=== PATIENT | male | born 1935 | race Caucasian/White ===

== ENCOUNTER → 2017-12-16 | Day surgery (SDC) | payer MEDICARE ==
[~2017-12-16] MED LIST: ARICEPT5 MG PO; B-12 5,000 MCG1 EACH PO; BUPROPION HCL150 M2 PO; CARVEDILOL3.125 MG PO; DOCUSATE SODIU100 MG PO; FENTANYL CITRATE/PF 100MCG/2 ML INJ ONE; FERROUS SULFAT325 MG PO; FINASTERIDE5 MG PO; GLUCAGON FOR INJ 1 MG VIAL ONE; GLYCOPYRROLATE INJ 1MG/ 5 ML SYR ONE; IPRATROPIU0.2 MG/1 M NEB; LASIX20 MG PO; LIDOCAINE HCL 2% LOCAL INJ 5 ML SDV VIAL INJ ONE; LIPITOR20 MG PO; LISINOPRIL10 MG PO; MELATONIN3 MG PO; MIRALAX17 GM PO; MIRTAZAPINE15 MG PO; NYSTATIN PO; PANTOPRAZOLE SO40 MG PO; PROPOFOL IV EMULSION 10 MG/ML 50 ML VIAL ONE; PROVENTIL HFA6.7 GM INH; SENNOSIDES8.6 MG PO; SPIRIVA18 MCG INH; SUBOXONE 8 MG-1 EAC2 INH; SYMBICORT 80-10.2 GM INH; VITAMIN B-121000 MCG PO; XARELTO10 MG PO
--- NOTE | 2017-12-17 00:55 | Operative Report ---
DATE OF PROCEDURE: December 16, 2017 REFERRING PHYSICIAN: Dr. Bryant Timmons PROCEDURE PERFORMED: Colonoscopy and polypectomy. INDICATIONS FOR COLONOSCOPY: Colorectal cancer screening and occult blood in stool. MEDICATION: Patient was done under MAC. Please see anesthesiologist's note. PROCEDURE: With the patient in the left lateral decubitus position, the flexible fiberoptic Olympus colonoscope was inserted into the rectum with ease and advanced all the way to the proximal ascending colon. The cecum could not be visualized due to the presence of a large amount of retained fecal material in the cecum. The scope was then withdrawn slowly. The prep overall was suboptimal to poor with moderate to large amount of retained stools in the colon. Whatever was visualized of the mucosa of the ascending colon appeared to be within normal limits. One polyp was snared from the transverse colon. One polyp was snared from the descending colon. There was some minimal diverticulosis in the sigmoid colon. The rectum grossly appeared to be within normal limits. The scope was then retroflexed into the distal rectum and small internal hemorrhoids were noted, none of which was actively bleeding. The scope was then straightened out. It was subsequently withdrawn. Patient tolerated the procedure well. IMPRESSION 1. Poor prep. 2. Transverse colon polyps, snared. 3. Descending colon polyps, snared. 4. Internal hemorrhoids, none actively bleeding. PLAN: Follow up histology. Patient will need a repeat colonoscopy after a better prep. Job#: [id number] RI cc:BRYANT TIMMONS MD
== END | disposition home or self-care (01) ==
LOC: ENDO 12:56
PROVIDERS: ATTEND Internal Medicine Gastroenterology
DX: R19.5 Other fecal abnormalities (principal); D12.4 Benign neoplasm of descending colon; D12.3 Benign neoplasm of transverse colon; K64.8 Other hemorrhoids; J44.9 Chronic obstructive pulmonary disease, unspecified; Z99.81 Dependence on supplemental oxygen; E78.5 Hyperlipidemia, unspecified; I13.0 Hypertensive heart and chronic kidney disease with heart failure and stage 1 through stage 4 chronic kidney disease, or unspecified chronic kidney disease; I50.22 Chronic systolic (congestive) heart failure; N18.9 Chronic kidney disease, unspecified; I48.2 Chronic atrial fibrillation; F41.8 Other specified anxiety disorders; N40.0 Benign prostatic hyperplasia without lower urinary tract symptoms; Z95.0 Presence of cardiac pacemaker; Z79.02 Long term (current) use of antithrombotics/antiplatelets; Z88.8 Allergy status to other drugs, medicaments and biological substances
CPT/HCPCS: 45385; J1610; J2001; 45378

== ENCOUNTER 2018-10-27 05:56 | Inpatient (IN) | payer MEDICARE, OTHER ==
[~2018-10-27] VITALS: Ht 172.7 cm; Wt 75.3 kg
[~2018-10-27 05:56] MED LIST changes: -FENTANYL CITRATE/PF 100MCG/2 ML INJ ONE; -GLUCAGON FOR INJ 1 MG VIAL ONE; -GLYCOPYRROLATE INJ 1MG/ 5 ML SYR ONE; -LIDOCAINE HCL 2% LOCAL INJ 5 ML SDV VIAL INJ ONE; -PROPOFOL IV EMULSION 10 MG/ML 50 ML VIAL ONE
--- OUTSIDE RECORDS SUMMARY | 2018-10-27 05:59 | XMS REPORT ---
Author [facility] Address Unknown Phone Unavailable Care Team Providers Care Material Lister Name Role Phone Unavailable Unavailable Payers Payer Name Policy Type Policy Number Effective Date Expiration Date Problems This patient has no known problems. Allergies, Adverse Reactions, Alerts Allergy Name Allergy Type Status Severity Reaction(s) Onset Date Inactive Date Treating Clinician Comments Benzodiazepines DA Active U 2018-07-26 00:00:00 Benzodiazepines DA Active U 2018-06-07 00:00:00 No Known Allergies DA Active U 2016-11-12 00:00:00 Medications This patient has no known medications.
[2018-10-27] MEDS ORDERED: FUROSEMIDE INJ 10 MG/ML 4 ML VIAL IV STA (06:27)
[2018-10-27] MEDS ORDERED: FUROSEMIDE INJ 10 MG/ML 2 ML VIAL ONE (06:34)
[2018-10-27] MEDS ORDERED: CEFEPIME 1GM/NS 0.9% 50 ML 50 ML IV STA ×2 (06:49→11:28)
[2018-10-27] MEDS ORDERED: VANCOMYCIN 1GM/NS 250 ML 250 ML IV STA ×2 (06:49→11:29)
--- NOTE | 2018-10-27 06:55 | NUR ---
Note jennaelizabeth in EDM - 10/27/18 at 1129 by RERE ASSUMED CARE AT THIS TIME. PATIENT AWAKE AND ALERT LAYING IN BED WITH EYES CLOSED,EASILY ARROUSABLE TO VERBAL STIMULI. RESP EVEN AND UNLABORED. SKIN WARM AND DRY. NO SIGNS OF ACUTE DISTRESS NOTED AT THIS TIME. DENIES ANY C/O AT THIS TIME.
[2018-10-27 07:08] LABS: HEMATOCRIT 32.8 % (38.2-49.6); LYMPHOCYTES # (AUTO) 0.5 (1.0-3.2); LYMPHOCYTES % 10.9 % (18.0-39.1); MEAN CORPUSCULAR HEMOGLOBIN 29.4 pg (28-32); MEAN CORPUSCULAR HGB CONC 30.5 g/dL (31-35); MEAN CORPUSCULAR VOLUME 96.5 fL (81-99); MONOCYTES # (AUTO) 0.5 (0.2-0.8); MONOCYTES % 9.5 % (4.4-11.3); NEUTROPHILS # (AUTO) 3.9 (2.1-6.9); NEUTROPHILS % 79.2 % (38.7-80.0); PLATELET COUNT 192 x10e3/uL (140-360); RED CELL DISTRIBUTION WIDTH 14.5 % (11.7-14.4)
--- NOTE | 2018-10-27 07:15 | NUR ---
ASSUMED CARE AT THIS TIME. PATIENT ON BIPAP,TOLERATING WELL. RESP EVEN AND UNLABORED. SKIN WARM AND JDRY. AWAKE AND ALERT SITTING IN BED, DENIES ANY C/O AT THIS TIME. NO SIGNS OF ACUTE DISTRESS NOTED AT THIS TIME.
[2018-10-27 07:34] LABS: ALBUMIN/GLOBULIN RATIO 0.8 (0.8-2.0); ANION GAP 14.8 mmol/L (8-16); CALCIUM 8.7 mg/dL (8.4-10.2); CREATININE, SERUM 2.13 mg/dL (0.72-1.25); MAGNESIUM 2.3 MG/DL (1.3-2.1); POTASSIUM 3.8 mmol/L (3.5-5.1)
--- NOTE | 2018-10-27 07:35 | NUR ---
Note undone in EDM - 10/28/18 at 0716 by RERE 3RD UNIT OF ORDERED BLOOD INITIATED,SEE TRANSFUSION SHEET. PATIENT AWAKE AND ALERT. RESP EVEN AND UNLABORED. SKIN WARM AND DRY. NO SIGNS OF ACUTE DISTRESS NOTED AT THIS TIME. DENIES C/O CHEST PAIN OR SOB AT THIS TIME.
[2018-10-27 07:40] LABS: CREATINE KINASE MB 4.6 ng/mL (0-5.0)
--- NOTE | 2018-10-27 07:50 | NUR ---
Note undone in EDM - 10/28/18 at 0718 by RERE PATIENT AWAKE AND ALERT. RESP EVEN AND UNLABORED. SKIN WARM AND DRY. NO SIGNS OF ACUTE DISTRESS NOTED AT THIS TIME. DENIES C/O CHEST PAIN OR SOB AT THIS TIME. NO S/S OF TRANSFUSION REACTION NOTED AT THIS TIME.
--- NOTE | 2018-10-27 08:04 | Diagnostic Imaging Report ---
EXAMINATION: CHEST SINGLE (PORTABLE) INDICATION: CHF, SOB COMPARISON: None FINDINGS: TUBES and LINES: None. LUNGS: Lungs are moderately inflated. There is moderate perihilar fullness and indistinctness of the pulmonary vasculature. There are patchy opacities at the lung bases bilaterally. PLEURA: No pleural effusion or pneumothorax. HEART AND MEDIASTINUM: The cardiomediastinal silhouette is enlarged. There is eventration of the right hemidiaphragm. Atherosclerotic calcification of the thoracic aorta. BONES AND SOFT TISSUES: No acute osseous abnormality. UPPER ABDOMEN: No free air under the diaphragm. IMPRESSION: Cardiomegaly with moderate pulmonary interstitial edema. Opacities in the lower lungs could represent atelectasis, alveolar edema, or pneumonia in the appropriate clinical setting. Follow-up chest radiograph is suggested to assess for resolution. Signed by: Dr. Chhaya Ham MD on 10/27/2018 8:01 AM
--- NOTE | 2018-10-27 08:30 | NUR ---
PATIENT AWAKE AND ALERT SITTING IN BED, REQUESTING TO TAKE BIPAP MASK OFF FOR A FEW MINUTES, BIPAP MASK TAKEN OFF, TOLERATING WELL. INSTRUCTED TO NOTIFY NURSE FOR ANY C/O SOB OR DIFFICULTY BREATHING,VERBALIZED UNDERSTANDING. NO SIGNS OF ACUTE DISTRESS NOTED AT THIS TIME.
--- NOTE | 2018-10-27 08:55 | NUR ---
PATIENT INCONTINENT, CLEAN SHEETS AND CLEAN BREIF APPLIED. SPO2 IN 70'S, RESP RAPID AN LABORED. BIPAP MASK REAPPLIED, EDUCATED PATIENT ON WEARING BIPAP MASK,VERBALIZED UNDERSTANDING. REPOSITINED IN HIGH FOWLERS. PATIENT RESP STATUS IMPROVING WITH BIPAP AND REST. NO SIGNS OF ACUTE DISTRESS NOTED AT THIS TIME.
--- NOTE | 2018-10-27 09:15 | NUR ---
PATIENT LETHARGIC, DIFFICULT TO ARROUSE TO VERBAL STIMULI,RESP RAPID AND LABORED. SKIN PALE AND DIAPHORETIC. NOTIFIED DR KIM. REPEAT ABG ORDERED AT THIS TIME.
[2018-10-27 09:21] LABS: ABG HCO3 34 mmol/L (23-28); ABG PCO2 62 mmHg (41-51); ABG PH 7.34 (7.31-7.41); ABG PO2 191 mmHg (80-105)
--- NOTE | 2018-10-27 09:21 | NUR ---
RESPIRATORY AT BEDSIDE FOR ABG.
--- NOTE | 2018-10-27 09:35 | NUR ---
NOTIFIED DR KIM RESP STATUS WORSENING AND REPEAT ABG RESULT. PATIENT TO BE PREPPED FOR RSI AT THIS TIME.
[2018-10-27 09:43] LABS: ABG HCO3 33 mmol/L (23-28); ABG PCO2 72 mmHg (41-51); ABG PH 7.26 (7.31-7.41); ABG PO2 172 mmHg (80-105)
--- NOTE | 2018-10-27 10:05 | NUR ---
PATIENT PLACED ON WAFFLE AIR BEDDING,TOLERATED WELL.
--- NOTE | 2018-10-27 10:30 | NUR ---
PATIENT PALE,ORTHOPENIC, LETHARGIC AND DIFICULT TO ARROUSRE TO VERBAL STIMULI,RESP LABORED WITH USE OF ACCESSORY MUSCLES. NOTIFIED DR KIM OF WORSENING RESP STATUS.
--- NOTE | 2018-10-27 10:37 | NUR ---
1037 ETOMIDATE 10MG IV PUSH 1037 SUCCINYCHOLINE 100MG IV PUSH
--- NOTE | 2018-10-27 10:48 | NUR ---
PATIENT OPENING EYES AND BITTING ET TUBE, NOTIFIED DR KIM SEDATION ORDERS NEEDED POST INTUBATION. VERBAL ORDER: VERSED DRIP PER PROTOCOL AND 4MG VERSED IV PUSH ONCE ORDERED AT THIS TIME.
--- NOTE | 2018-10-27 10:52 | NUR ---
CALLED PHARMACY STAT FOR VERSED NEEL
--- NOTE | 2018-10-27 10:57 | NUR ---
XRAY AT BEDSIDE FOR CXR-POST INTUBATION.
[2018-10-27] MEDS ORDERED: MIDAZOLAM HCL 2 MG/2 ML VIAL IV STA (11:00)
[2018-10-27] MEDS: MIDAZOLAM HCL 25 MG in SODIUM CHLORIDE 0.9% 50ML 45 ML IV PRN ×3 (11:07→20:01)
--- NOTE | 2018-10-27 11:36 | Diagnostic Imaging Report ---
EXAMINATION: CHEST SINGLE (PORTABLE) INDICATION: Status post intubation. COMPARISON: Chest radiograph 10/27/2018 at 726AM. FINDINGS: TUBES and LINES: The patient has been intubated in the interval, the ET tube terminates 3.7 cm above the marva. Left-sided pacemaker with single lead overlying the right ventricle. LUNGS: Moderate inflation of the lungs. There are increasing perihilar and interstitial opacities. Increasing hazy opacities at the right lung base. Persistent patchy left basilar opacity. PLEURA: Interval development of a small right pleural effusion. No evidence of pneumothorax. HEART AND MEDIASTINUM: The cardiomediastinal silhouette is mildly enlarged. Atherosclerotic calcification of the aortic arch. BONES AND SOFT TISSUES: No acute osseous abnormality. UPPER ABDOMEN: No free air under the diaphragm. IMPRESSION: Interval intubation. No evidence of pneumothorax. Cardiomegaly with increasing pulmonary edema and new small right-sided pleural effusion. Increased right basilar opacity and persistent left basilar opacity could represent alveolar edema, atelectasis, or pneumonia in the appropriate clinical context. Signed by: Dr. Chhaya Ham MD on 10/27/2018 11:33 AM
--- NOTE | 2018-10-27 12:40 | NUR ---
PATIENT INTUBATED AND SEDATED. NO SIGNS OF ACUTE DISTRESS NOTED AT THIS TIME. PATIENT'S SON AT BEDSIDE. EDUCATED FAMILY ON THE CURRENT PLAN OF CARE,VERBALIZED UNDERSTANDING.
--- NOTE | 2018-10-27 12:58 | NUR ---
PER RADHA, TRANSFER CENTER OF , TRANSFER DENIED DUE TO OVER CAPACITY
[2018-10-27 13:02] LABS: CLARITY,URINE HAZY (CLEAR); COLOR,URINE YELLOW (YELLOW); LEUKOCYTE ESTERASE ,URINE NEGATIVE (NEGATIVE); NITRITE,URINE NEGATIVE (NEGATIVE)
[2018-10-27 13:03] LABS: AMORPHOUS SEDIMENT,URINE FEW (FEW); BACTERIA,URINE MODERATE /HPF; BILIRUBIN,URINE NEGATIVE (NEGATIVE); EPITHELIAL CELLS,URINE MODERATE /LPF; KETONES,URINE NEGATIVE (NEGATIVE); PROTEIN,URINE DIPSTICK TRACE (NEGATIVE); URINE UROBILINOGEN 0.2 mg/dL (0.2 - 1); WBC,URINE (MAN) 0-5 /HPF (0-5)
--- NOTE | 2018-10-27 13:31 | NUR ---
PATIENT INTUBATED AND SEDATED. RESP EVEN AND UNLABORED. SKIN WARM AND DRY. NO SIGNS OF ACUTE DISTRESS NOTED AT THIS TIME.
[2018-10-27] MEDS ORDERED: SODIUM CHLORIDE FLUSH 10 ML SYR INJ PRN (14:15)
--- NOTE | 2018-10-27 14:57 | NUR ---
PATIENT INTUBATED AND SEDATED. RESP EVEN AND UNLABORED. SKIN WARM AND DRY. NO SIGNS OF ACUTE DISTRESS NOTED AT THIS TIME.
[2018-10-27] MEDS ORDERED: LEVAQUIN500 MG PO (15:14)
[2018-10-27] MEDS ORDERED: ASPIR 8181 MG (15:14)
[2018-10-27] MEDS ORDERED: FOLIC ACID1 MG PO (15:14)
[2018-10-27] MEDS ORDERED: POTASSIUM CHLO10 ME1 PO (15:14)
[2018-10-27] MEDS ORDERED: TRAZODONE HCL50 MG PO (15:14)
[2018-10-27] MEDS ORDERED: LACTULOSE10 GM/15 M (15:14)
[2018-10-27] MEDS ORDERED: CLONIDINE HCL0.1 MG PO (15:14)
[2018-10-27] MEDS ORDERED: METOLAZONE2.5 MG (15:14)
[2018-10-27] MEDS ORDERED: PATADAY2.5 ML OU (15:14)
--- NOTE | 2018-10-27 15:14 | NUR ---
EMERGENCY CONTACT DAVID DELVALLE - PATIENT'S SON [phone]
--- NOTE | 2018-10-27 15:56 | NUR ---
XRAY AT BEDSIDE FOR KUB POST OG TUBE PLACEMENT.
[2018-10-27] MEDS ORDERED: TIOTROPIUM 18 MCG INH POWDER INH PRN (16:15)
[2018-10-27] MEDS ORDERED: ALBUTEROL SULFATE HFA 8GM INHALATION AEROSOL INH PRN (16:15)
[2018-10-27] MEDS ORDERED: IPRATROPIUM BROMIDE 0.02% 2.5 ML NEB NEB PRN (16:15)
--- NOTE | 2018-10-27 16:25 | Diagnostic Imaging Report ---
Exam: KUB. Clinical History: NG tube placement Comparison: Chest radiograph 10/27/2018 Findings: Frontal view of the abdomen demonstrates a nonobstructive bowel gas pattern with moderate retained stool. Partially imaged enteric tube with distal tip over the left upper abdomen.Partially imaged cardiac device. Impression: Partially imaged enteric tube with distal tip over the left upper abdomen Signed by: Dr. Jonathan Gutierres M.D. on 10/27/2018 4:22 PM
[2018-10-27] MEDS ORDERED: BUDESONIDE/FORMOTEROL FUMARATE 80/4.5MCG 6.9 GM INH AEROSOL IH SCH (16:30)
[2018-10-27] MEDS ORDERED: FUROSEMIDE INJ 10 MG/ML 4 ML VIAL IV SCH (17:00)
[2018-10-27] MEDS ORDERED: RIVAROXABAN 15 MG TABLET PO SCH (17:00)
[2018-10-27] MEDS: OSELTAMIVIR PHOSPHATE 75 MG CAP PO SCH (17:40)
[2018-10-27] MEDS: CARVEDILOL 3.125 MG TAB PO SCH (17:40)
--- NOTE | 2018-10-27 17:45 | NUR ---
NEPRO TUBE FEED STARTED TO OG TUBE, PER KANGAROO PUMP AT 40ML/HR, REPOSITIONED IN SEMI FOWLERS FOR FEEDING. TOLERATING WELL. NO S/S OF RESP DISTRESS NOTED.
[2018-10-27] MEDS: BUPROPION HCL SR 150 MG TAB PO SCH (17:46)
[2018-10-27 17:51] LABS: CREATINE KINASE MB 3.3 ng/mL (0-5.0)
[2018-10-27] MEDS ORDERED: MIDAZOLAM HCL 2 MG/2 ML VIAL ONE (18:47)
[2018-10-27] MEDS ORDERED: SUCCINYLCHOLINE CHLORIDE 20 MG/ML 10ML VIAL ONE (18:47)
[2018-10-27] MEDS ORDERED: ETOMIDATE 2 MG/ML 10 ML INJ IV ONE (18:47)
--- NOTE | 2018-10-27 18:55 | NUR ---
VERBAL REPORT GIVEN TO MAGEN JOYCE.
--- NOTE | 2018-10-27 19:00 | NUR ---
PT AROUSABLE TO VERBAL AND TACTILE STIMULI THEN APPEARS CALM WHEN NO LONGER STIMULATED. SKIN W/D TOLERATING VENT WELL
[2018-10-27] MEDS: ATORVASTATIN 20 MG TAB PO SCH (20:58)
[2018-10-27] MEDS: DOCUSATE SODIUM 100 MG CAP PO SCH (20:59)
[2018-10-27] MEDS ORDERED: TRAZODONE HCL 50 MG TAB PO SCH (21:00)
[2018-10-27] MEDS ORDERED: MELATONIN 3 MG TAB PO SCH (21:00)
[2018-10-27] MEDS ORDERED: DONEPEZIL HCL 5 MG TAB PO SCH (21:00)
--- NOTE | 2018-10-27 21:00 | NUR ---
CHECKED RESIDUAL FROM NGT, 20CC RETURN, CONTINUED FEEDING AT 40ML/HR
[2018-10-27] MEDS ORDERED: CLONIDINE HCL 0.1 MG TAB PO SCH (22:00)
[2018-10-27] MEDS: CEFEPIME 1GM/NS 0.9% 50 ML 50 ML IV SCH (23:40)
[2018-10-28] VITALS (15 sets, daily range): BP systolic 107–167; BP diastolic 40–82
[2018-10-28] MEDS ORDERED: POTASSIUM CHLORIDE 20MEQ/15ML UDC NG STA (00:11)
[2018-10-28] MEDS ORDERED: FUROSEMIDE INJ 10 MG/ML 4 ML VIAL IV ONE (00:15)
[2018-10-28] MEDS: MIDAZOLAM HCL 25 MG in SODIUM CHLORIDE 0.9% 50ML 45 ML IV PRN ×4 (00:15→13:23)
--- NOTE | 2018-10-28 01:00 | NUR ---
RESIDUAL FROM NGT 200ML, CONT FEEDING.
[2018-10-28 02:07] LABS: CREATINE KINASE MB 2.2 ng/mL (0-5.0)
--- NOTE | 2018-10-28 02:21 | Consultation ---
DATE OF CONSULTATION: 10/27/2018 Cardiac Consultation SOURCE OF INFORMATION: Nursing staff records, reviewing records, reviewing data. The patient is intubated on ventilator, his family is not at bedside. HISTORY: This is an 83-year-old gentleman, who came to the emergency room with severe shortness of breath. Apparently, this started for the last 3 to 4 days. His dyspnea was very severe. He is unable to do anything. He need to be in a sitting position and fighting for his breath. With oxygen and diuretics and other treatment given in the emergency room, he was not doing well at all. He was having wheezing. He does have very abnormal ABGs with pCO2 of 72, pH of 7.26, and pO2 of 172 on 50% FiO2. It was clearly he is in respiratory failure. The patient need to be intubated in the emergency room, placed on ventilator. His chest x-ray showed cardiomegaly, congestion, and possible pneumonia. His influenza A is positive. Urgent cardiac consultation was obtained to evaluate the patient. Cardiac garduno, the patient seems to have a pacemaker. He is in atrial fibrillation. He is on Xarelto for that. He seems to have history of hypertension, dementia, and urinary symptoms. The patient seems to be also bedridden as evidenced by my physical exam of his lower extremities. Unfortunately, no more information can be taken from the patient. REVIEW OF SYSTEMS: Unable to get. PAST MEDICAL HISTORY: 1. Hypertension. 2. COPD. 3. Coronary artery disease. 4. Atrial fibrillation. 5. Hypothyroidism. 6. Congestive heart failure. 7. Chronic renal disease. 8. Hyperlipidemia. 9. Anemia. 10. Prostate problem. 11. Severe constipation. 12. Hyperlipidemia. 13. The patient does have chronic swelling of the lower extremities, on multiple diuretics. 14. Pacemaker implantation. HOME MEDICATIONS: Long list including the followin. Albuterol. 2. Symbicort. 3. Spiriva. 4. Aspirin 81 mg a day. 5. Xarelto 15 mg a day. 6. Lipitor 20 mg a day. 7. Coreg 6.25 mg twice a day. 8. Clonidine 0.1 mg every 8 hours. 9. Lasix 20 mg a day. 10. Zaroxolyn 2.5 mg a day. 11. Lisinopril 10 mg a day. 12. Vitamin B12. 13. Iron sulfate. 14. Folic acid. 15. Colace. 16. Lactulose. 17. Finasteride. 18. Bupropion 150 mg twice a day. 19. Aricept 5 mg a day. 20. Mirtazepine. 21. Trazodone. ALLERGIES: BENZODIAZEPINE. FAMILY HISTORY: Unable to get. PHYSICAL EXAMINATION: GENERAL: Very ill gentleman, on ventilator, sedated with Versed. VITAL SIGNS: Temperature 99 Fahrenheit, respiratory rate is ventilator related, blood pressure 120/70, and heart rate of 50. HEENT: The patient is sedated. Eyes are puffy. The patient is intubated. NECK: Very difficult to assess jugular venous pulsation. CHEST: Bilateral crackles and wheezes. HEART: Irregularly irregular rate. Pacemaker is noted in place. Normal first and second heart sounds. There is ejection systolic murmur in left sternal border. ABDOMEN: Soft and obese. EXTREMITIES: Severe edema of the lower extremities, in both ankles and lower legs. There is redness noted over the left lower extremity. NEUROLOGIC: The patient is intubated on ventilator. LABORATORY DATA: ABG showed pH of 7.26, pCO2 of 72, and pO2 of 172. White blood cell count of 5000, hemoglobin of 10, hematocrit of 36%, and platelet count of 192,000. Sodium of 135, potassium 3.8, BUN of 34, creatinine of 2.13, and glucose of 101. Influenza A is positive. Chest x-ray as described above. Troponin is 0.369. Echo read by Dr. Still showed ejection fraction to be preserved, left ventricular hypertrophy, elevated PA pressure, and mild aortic stenosis. IMPRESSION AND PLAN: 1. Acute respiratory failure. 2. Influenza A. 3. Chronic obstructive pulmonary disease with hypercapnic respiratory failure. 4. History of congestive heart failure. 5. Atrial fibrillation. 6. Pacemaker. 7. Coronary artery disease. 8. Dementia. 9. Chronic urinary symptoms. 10. Chronic constipation. 11. Debility. 12. Marked swelling of the lower extremities, possible Scimitar imposing cellulitis of the left lower extremity. 13. Elevated troponin of 0.369. Cardiac garduno, the patient will be on diuresis. We will hold on his lisinopril for the time being because of elevation of BUN and creatinine. We will continue Coreg. We will continue aspirin. He need to be anticoagulated, probably shifting from Xarelto to Lovenox for the time being. He need to have pulmonary support. He need to have antibiotics coverage. We will observe his volume status. We will check his BMP. We will follow his lab carefully. We need to get more information from his family. We need to get code status. We need to see who is his doctor and get more information. We probably also need to have pacemaker check because his pacemaker response seems to be at 50 only. Case discussed with the ER nurse team. The patient will be going to ICU. The patient will be seen also by Pulmonary Service. We will follow this very sick patient with you and would like thank you for your kind referral. This was lengthy visit with very complex care with multiple medical health problems. MD JEIMY Barrett/CONTRERAS /[id number]
--- NOTE | 2018-10-28 04:06 | NUR ---
CHECKED NGT RESIDUAL, 140ML. CONTINUED TUBE FEEDING. TOLERATING VENT WELL, RESPONDS TO VERBAL STIMULI WITH EYE OPENING, THEN CLOSES EYES AND APPEARS TRANQUIL WHEN NO LONGER STIMULATED.
--- NOTE | 2018-10-28 06:11 | Consultation ---
DATE OF CONSULTATION: 10/27/2018 Pulmonary Medicine Consult REASON FOR REFERRAL: Acute respiratory failure. HISTORY OF PRESENT ILLNESS: Mr. Infante is a pleasant 83-year-old gentleman with acute respiratory failure. The patient was in his routine health recently. However, there was some early onset of malaise. The patient was having progressive shortness of breath. The patient due to increasing symptoms came to the emergency room for aggressive therapy and evaluation. In the emergency room, his influenza assay was negative. Initial chest x-ray showed scant alveolar infiltrates/opacities bilateral. However, he became progressively more short of breath. He eventually needed intubation. Repeat chest x-ray demonstrated good ET tube placement, but moderate bilateral pneumonia and small onset of right-sided pleural effusion. The patient remains with stable blood pressure at this time. I am consulted. Unknown sick contacts for flu. PAST MEDICAL HISTORY: Dyslipidemia, CHF with an ejection fraction of 25%. The patient with hypertension. COPD. Depression. Atrial fibrillation. Pacemaker 2014. Appendectomy in 1963. MEDICATIONS: Medication list reviewed per the chart record. ALLERGIES: NO KNOWN DRUG ALLERGIES. SOCIAL HISTORY: Former smoker, but quit 10 years ago. No alcohol. No drugs. The patient's son was present earlier. REVIEW OF SYSTEMS: Cannot get reliable review of systems, as he is altered. FAMILY HISTORY: Noncontributory to this condition. OBJECTIVE: VITAL SIGNS: Current vitals are more stabilized, currently afebrile now, vitals reviewed per the chart record. GENERAL: In no acute distress, alert, calm, on sedation, on ventilator. HEENT: Normocephalic and atraumatic. NECK: Supple. Throat midline. LUNGS: Bilateral air entry, few rhonchi, rales. CARDIOVASCULAR: S1 and S2. No murmurs, rubs, or gallops. ABDOMEN: Soft and nontender. EXTREMITIES: No clubbing. No cyanosis. There is only 1+ leg edema. INTEGUMENT: No rash. No purpura. LABORATORY DATA: Labs reviewed per the chart record. RADIOGRAPHY: As stated. IMPRESSION AND PLAN: 1. Acute respiratory failure, intubated. 2. Influenza with pneumonia, acquired prior to admission. 3. Possible community-acquired pneumonia, bacterial type, superimposed. 4. Concomitant fluid overload. 5. Congestive heart failure with low ejection fraction. 6. Hypertension. 7. Depression. 8. Atrial fibrillation history. 9. Chronic obstructive pulmonary disease with exacerbation. At this time, he is to continue current treatment. Keep him intubated. He got a dose of diuretic earlier today. We will re-dose him on more diuresis. The patient can have re-evaluation x-ray and consideration for weaning. I gave additional potassium for now. Early tube feeds started and there will be aspiration precautions. We will follow along closely. Give Tamiflu. Give antibiotics. Follow cultures. The patient in critical condition, but we hope there is improvement if he do not have any cardiac events. Thank you very much Dr. Chan for this consult. Please call for questions. MD MARLY Hart/CONTRERAS /[id number]
[2018-10-28 06:17] LABS: BASOPHILS % 0.3 % (0.0-1.0); EOSINOPHILS % 0.3 % (0.0-6.0); HEMATOCRIT 30.3 % (38.2-49.6); HEMOGLOBIN 9.9 g/dL (14.0-18.0); MEAN CORPUSCULAR HEMOGLOBIN 30.4 pg (28-32); MEAN CORPUSCULAR HGB CONC 32.7 g/dL (31-35); MEAN CORPUSCULAR VOLUME 92.9 fL (81-99); MONOCYTES # (AUTO) 0.7 (0.2-0.8); MONOCYTES % 9.4 % (4.4-11.3); NEUTROPHILS # (AUTO) 5.1 (2.1-6.9); NEUTROPHILS % 74.7 % (38.7-80.0); PLATELET COUNT 193 x10e3/uL (140-360); RED BLOOD COUNT 3.26 x10e6/uL (4.3-5.7); RED CELL DISTRIBUTION WIDTH 14.3 % (11.7-14.4)
[2018-10-28 06:39] LABS: CREATINE KINASE MB 1.6 ng/mL (0-5.0)
--- NOTE | 2018-10-28 07:00 | NUR ---
REPORT TO MAGEN CHRISTIAN
--- NOTE | 2018-10-28 07:00 | NUR ---
ASSUMED CARE AT THIS TIME. PATIENT INTUBATED AND SEDATED. RESP EVEN AND UNLABORED. SKIN WARM AND DRY. NO SIGNS OF ACUTE DISTRESS NOTED AT THIS TIME.
--- NOTE | 2018-10-28 07:23 | Diagnostic Imaging Report ---
EXAMINATION: CHEST SINGLE (PORTABLE) COMPARISON: Chest x-ray 10/27/2018 INDICATION: CHF, intubated ^CHF ^[id number] ^0545 ^Y DISCUSSION: Frontal view of the chest obtained at 0543 hours. HEART AND MEDIASTINUM: Stable cardiomegaly and prominence of the pulmonary keya LINES: Endotracheal tube terminates 4 to 5 cm above the marva. Enteric tube extends past the diaphragm. LUNGS: Baseline hyperinflation. Stable pulmonary vascular congestion. Bibasilar airspace opacities are redemonstrated with increasing retrocardiac airspace disease. PLEURA: No large effusions. No pneumothorax. BONES AND SOFT TISSUES: No focal osseous lesion. The soft tissues are normal. IMPRESSION: Support devices as described above. No change in pulmonary vascular congestion. Increasing airspace opacities particularly in the left lung base, either pneumonia or atelectasis. Signed by: Dr. Cherelle Lange MD on 10/28/2018 7:19 AM
[2018-10-28] MEDS ORDERED: ASPIRIN 81 MG CHEW TAB GT SCH (07:30)
--- NOTE | 2018-10-28 07:40 | NUR ---
GASTRIC RESIDUAL 50ML, CONTINUED TUBE FEEDING AT 40ML/HR PER KANGAROO PUMP.
[2018-10-28 07:46] LABS: ALBUMIN 2.6 g/dL (3.5-5.0); ALBUMIN/GLOBULIN RATIO 0.7 (0.8-2.0); ANION GAP 12.9 mmol/L (8-16); CALCIUM 8.3 mg/dL (8.4-10.2); CREATININE, SERUM 1.85 mg/dL (0.72-1.25)
[2018-10-28 07:48] LABS: POTASSIUM 2.9 mmol/L (3.5-5.1)
[2018-10-28 08:07] LABS: THYROID STIMULATING HORMONE 5.085 uIU/mL (0.350-4.940)
[2018-10-28] MEDS ORDERED: LISINOPRIL 10 MG TAB PO SCH (09:00)
[2018-10-28] MEDS ORDERED: RIVAROXABAN 10 MG TABLET PO SCH (09:00)
--- NOTE | 2018-10-28 09:24 | NUR ---
CAITLYN AT BEDSIDE TO PRAY OVER PATIENT. NO SIGNS OF ACUTE DISTRESS NOTED AT THIS TIME. SPOKE WITH CAITLYN REGARDING FAMILYS WISHES AND [employer] PREFRENCES,VERBALIZED UNDERSTANDING.
--- NOTE | 2018-10-28 09:30 | NUR ---
Supervisor Heat Treating called in. Pt's son requested head chopper to pray for his father. No family at bedside at time of visit. Provided prayer from [employer] tradition. Supervisor Heat Treating followed up w/ ED RN. requested follow up visit/prayer by [employer] Pastoral Visitor. Will follow as able. BETHANY Ahumada Spiritual Care Department O: [phone] Pager: [phone] ([phone] number calling from)
--- NOTE | 2018-10-28 10:05 | NUR ---
GASTRIC RESIDUAL 70ML, FEEDING STOPPED TO GIVE MORNING MEDS.
[2018-10-28] MEDS: FERROUS SULFATE 325 MG TAB PO SCH (10:08)
[2018-10-28] MEDS: MIRTAZAPINE 15 MG TAB PO SCH (10:08)
[2018-10-28] MEDS: FUROSEMIDE 20 MG TAB PO SCH (10:08)
[2018-10-28] MEDS: CYANOCOBALAMIN 1,000 MCG TAB PO SCH (10:08)
[2018-10-28] MEDS: CARVEDILOL 3.125 MG TAB PO SCH ×2 (10:08→16:15)
[2018-10-28] MEDS: FOLIC ACID 1 MG TAB PO SCH (10:08)
[2018-10-28] MEDS: FINASTERIDE 5 MG TAB PO SCH (10:08)
[2018-10-28] MEDS: BUPROPION HCL SR 150 MG TAB PO SCH ×2 (10:08→16:14)
[2018-10-28] MEDS: PANTOPRAZOLE SOD 40 MG TABEC PO SCH (10:08)
[2018-10-28] MEDS: OSELTAMIVIR PHOSPHATE 75 MG CAP PO SCH ×2 (10:08→16:14)
--- NOTE | 2018-10-28 10:08 | NUR ---
MORNING MEDS GIVEN PER OG TUBE, FLUSED WITH 30ML STERILE WATER,TOLERATED WELL.
--- NOTE | 2018-10-28 10:09 | NUR ---
TUBE FEEDING RESTARTED PER KANGAROO PUMP AT 40ML/HR, TOLERATING WELL. NO SIGNS OF ACUTE DISTRESS NOTED AT THIS TIME.
[2018-10-28] MEDS: DOCUSATE SODIUM 100 MG CAP PO SCH ×2 (10:11→15:08)
[2018-10-28] MEDS: SENNOSIDES 8.6 MG TAB PO SCH (10:13)
[2018-10-28] MEDS ORDERED: POTASSIUM CHLORIDE 20MEQ/15ML UDC NG ONE ×3 (11:30→21:00)
--- NOTE | 2018-10-28 11:38 | NUR ---
PATIENT TRANSPORTED TO ICU ROOM 195 ON PORTABLE VENT AND COMMUNICATIONS OFFICER WITH RESPIRATORY AND BINDERY ASSISTANT. NO SIGNS OF ACUTE DISTRESS NOTED AT THIS TIME.
[2018-10-28] MEDS: CEFEPIME 1GM/NS 0.9% 50 ML 50 ML IV SCH ×2 (11:59→20:51)
[2018-10-28] MEDS: VANCOMYCIN 1GM/NS 250 ML 250 ML IV SCH (12:24)
--- NOTE | 2018-10-28 13:03 | NUR ---
X2 PREMIXED VERSED DRIPS GIVEN TO SOLA Diego RN FOR USE IN ICU, FROM ER Dmailer REFRIGERATOR LOCK BOX.
--- NOTE | 2018-10-28 13:06 | NUR ---
NOTIFIED PHARMACY X2 PREMIXED VERSED DRIPS GIVEN TO SHAHAB Diego RN FROM ICU FOR PATIENT FROM ED PYXIS.
[2018-10-28] MEDS: APIXAB 2.5 MG TABLET PO SCH (16:14)
--- NOTE | 2018-10-28 16:17 | History and Physical ---
HISTORY OF PRESENT ILLNESS: The patient is on the ventilator right now due to COPD exacerbation, bilateral pneumonia, acute on chronic systolic CHF. PHYSICAL EXAMINATION: VITAL SIGNS: Blood pressure is 136/58, temperature , heart rate 54 per minute, respiratory rate is 18 per minute, and oxygen saturation 100%. HEART: Showed irregularly irregular heart rate. Normal S1, S2 sounds. LUNGS: Clear bilaterally. ABDOMEN: Soft. EXTREMITIES: Show edema of both lower extremities. He also had redness of both lower extremities. LABORATORY DATA: On the BMP; sodium 138, potassium low at 2.9, chloride 91, CO2 of 37, BUN 38, creatinine 1.85, and glucose 95. On the CBC; white blood count 6.88, hemoglobin 9.9, hematocrit 33.3, and platelet count 183,000. AST 34, ALT 21, total bilirubin 0.8, and alkaline phosphatase 60. Echocardiogram showed ejection fraction of 20% to 30%, left ventricular hypertrophy, thickened aortic valve, trace mitral regurgitation, and mild tricuspid regurgitation. On the EKG, he has pacemaker spikes. He has atrial flutter with variable AV block. FINAL IMPRESSION: 1. Acute respiratory failure. 2. Bilateral pneumonia. 3. Chronic obstructive pulmonary disease exacerbation. 4. Cellulitis in both lower extremities. 5. Nonsustained ventricular tachycardia. 6. Acute on chronic renal failure, stage 3. 7. Hypokalemia. 8. Anemia, currently seen. 9. Acute on chronic systolic diastolic congestive heart failure. 10. Chronic atrial fibrillation. PLAN OF TREATMENT: Continue ventilator support replace the potassium. Recheck the potassium initially. Today, continue Atrovent q.6 hours. Continue Versed drip. Continue cefepime 1 g IV twice a day, vancomycin 1 g IV once a day, bupropion 150 mg twice a day, Aricept 10 mg daily, folic acid 1 mg daily, Remeron 7.5 mg daily, Xarelto 15 mg daily. Continue with Tamiflu 75 mg twice a day due to the positive test for influenza. Continue carvedilol 6.25 mg twice a day, Lipitor 20 mg daily, furosemide 20 mg daily, Protonix 40 mg daily, vitamin B12 1000 mcg daily, ferrous sulfate 325 mg daily, lisinopril 10 mg daily, senna one tablet daily, aspirin 81 mg daily, Colace mg three times a day, Proscar 5 mg daily, melatonin 3 mg at bedtime, and trazodone [address] Vivas has been consulted from Pulmonary point of view. Dr. Guzman has been consulted from a Cardiology point of view due to the congestive heart failure and very severe cardiomyopathy. Chest x-ray shows CHF and showed evidence of pneumonia, also most likely aspiration pneumonia. Time spent 60 minutes . MD EPHRAIM Oconnell/CONTRERAS /[id number]
[2018-10-28] MEDS: PROPOFOL IV EMULSION 10MG/ML 100 ML IV SCH (16:18)
[2018-10-28 16:22] LABS: ABG PCO2 63 mmHg (41-51); ABG PH 7.44 (7.31-7.41); ABG PO2 85 mmHg (80-105)
[2018-10-28 16:23] LABS: ABG HCO3 43 mmol/L (23-28)
[2018-10-28] MEDS: HYDRALAZINE HCL 25 MG TAB PO SCH (16:35)
[2018-10-28] MEDS: ACETAZOLAMIDE SODIUM 500 MG/VIAL IV SCH (16:35)
--- NOTE | 2018-10-28 17:18 | Progress Note ---
DATE: 10/28/2018 Pulmonary Critical Care Progress Note I am covering for Dr. Vivas today. SUBJECTIVE: The patient remains on an assist-control mode of ventilation. He is on a low-dose of Versed at this time. He was evaluated by Cardiology and felt to have chronic systolic heart failure with decreased ejection fraction and history of atrial fibrillation. OBJECTIVE: VITAL SIGNS: Blood pressure is 166/82 and the pulse is 62. The respiratory rate is 16. He is on a pressure regulated volume control, sedimentation rate of 14 with a tidal volume of 450. He is orally intubated. HEENT: Shows no facial swelling or erythema. LYMPHATIC: Shows no submandibular, cervical, or supraclavicular adenopathy. CARDIAC: Reveals regular rate and rhythm with a normal S1 and S2. There are no murmurs or rubs. LUNGS: Auscultation of lungs reveals rhonchorous breath sounds bilaterally. There is no wheezing. ABDOMEN: Soft and nontender. There is no rebound or guarding. EXTREMITIES: Shows 2+ leg edema. LABORATORY DATA: Potassium is 2.9, BUN to creatinine ratio is 38 to 1.85. Other electrolytes are within normal limits. White blood cell count is 6.9, hemoglobin is 9.9, and platelet count is 193. Nasal swab for influenza is positive. RADIOGRAPHIC DATA: Chest x-ray shows bilateral pulmonary infiltrates. IMPRESSION: 1. Influenza with associated pneumonia and severe sepsis present on admission. 2. Acute respiratory failure. 3. Chronic systolic congestive heart failure. 4. Paroxysmal atrial fibrillation. 5. Hypertension. 6. Chronic renal failure, stage 3. PLAN: 1. Continue Tamiflu along with cefepime and vancomycin. 2. Await culture results. 3. ABG now and wean as tolerated. 4. DC Versed and begin propofol to help facilitate weaning. 5. DVT prophylaxis with Eliquis. 6. Enteral feedings. 7. Case discussed with nursing staff and Respiratory. 8. Greater than 35 minutes in direct critical care time. Nic Coley MD [facility]/MODL /[id number]
--- NOTE | 2018-10-28 17:36 | NUR ---
CASE MANAGEMENT INITIAL ASSESSMENT [employer] to bedside to discuss plan of care with patient/family. CM/SW role and care transitions discussed. Anticipated discharge plan discussed along with duration of care. CM/SW discussed patients right to make decisions in care. CM/SW work hours given. Patient lives: AT [facility] Admit/Transfer: ER Hospital/ER visits since last admit:0 POA/Emergency contact: NATIVIDAD DELVALLE [phone] Current/Previous Home Health: NONE PCP/Follow-up Care: CUSTODIAL DOCTOR Current/Previous DME: NONE Medications (referring to index hospitalization or the first time you were in the hospital) a. Were changes made in your medications when you were in the hospital on [date of index hospitalization]? Yes No Not sure Explain: Note: If no or not sure, please skip to question d b. Did you understand the changes? Yes No Explain: c. Were you able to obtain your new medications right away? Yes No n/a SNF only Explain: d. Were you able to take your medications like the doctor wanted you to? Yes No Explain: e. Did the hospital give you an accurate, easy to understand list of medications when you left? Yes No n/a SNF only Explain: Scale of 1-10 how comfortable does patient feel with disease management in outpatient setting: Other Services: Employment Status: RETIRED Areas of Concerns: NONE Referral Needs: TO BE DETERMINED Education Needs: NONE IMM/HENSLEY given and signed (if applicable): ON ADMIT Goal for discharge:RETURN TO [facility] CM/SW left business card at the bedside with contact information. Name and number was also written on the patients whiteboard. Patient verbalized understanding of discussion. CM will follow-up with ongoing discharge and transition of care needs.
[2018-10-28 18:25] LABS: MAGNESIUM 1.7 MG/DL (1.3-2.1)
[2018-10-28 18:32] LABS: POTASSIUM 2.7 mmol/L (3.5-5.1)
[2018-10-28] MEDS: ATORVASTATIN 20 MG TAB PO SCH (20:51)
[2018-10-28] MEDS: DOCUSATE SODIUM LIQD 100 MG/10 ML UDC NG SCH (20:51)
[2018-10-28] MEDS ORDERED: SODIUM CHLORIDE 0.9% 250ML 250 ML ONE (21:51)
[2018-10-29] VITALS (24 sets, daily range): BP systolic 96–169; BP diastolic 40–70
[2018-10-29] MEDS: DOCUSATE SODIUM LIQD 100 MG/10 ML UDC NG SCH ×3 (04:59→21:30)
[2018-10-29] MEDS: HYDRALAZINE HCL 25 MG TAB PO SCH ×3 (04:59→17:58)
--- NOTE | 2018-10-29 07:27 | Diagnostic Imaging Report ---
Examination: Single AP view of the chest. COMPARISON: 10/28/2018 INDICATION: Respiratory failure DISCUSSION: Lines/tubes: The endotracheal tube above the marva. Enteric tube with the distal tip not visualized. Lungs: Bilateral lower lung atelectasis and effusions. Central venous congestion. Heart and mediastinum: The heart and the mediastinum are unremarkable. Bones and soft tissues: No acute bony abnormalities. IMPRESSION: Stable central venous congestion with bilateral effusions and lower lung atelectasis. Signed by: Dr. Omkar Jarvis M.D. on 10/29/2018 7:23 AM
[2018-10-29 07:30] LABS: BASOPHILS % 0.3 % (0.0-1.0); EOSINOPHILS # (AUTO) 0.1 (0.0-0.4); EOSINOPHILS % 0.7 % (0.0-6.0); HEMOGLOBIN 10.6 g/dL (14.0-18.0); LYMPHOCYTES # (AUTO) 2.6 (1.0-3.2); LYMPHOCYTES % 36.3 % (18.0-39.1); MEAN CORPUSCULAR HEMOGLOBIN 29.9 pg (28-32); MEAN CORPUSCULAR HGB CONC 31.2 g/dL (31-35); MONOCYTES # (AUTO) 0.7 (0.2-0.8); MONOCYTES % 9.3 % (4.4-11.3); NEUTROPHILS # (AUTO) 3.7 (2.1-6.9); NEUTROPHILS % 53.1 % (38.7-80.0); PLATELET COUNT 171 x10e3/uL (140-360); RED BLOOD COUNT 3.54 x10e6/uL (4.3-5.7); RED CELL DISTRIBUTION WIDTH 14.5 % (11.7-14.4)
[2018-10-29 07:42] LABS: INR 1.84; PROTHROMBIN TIME 21.9 seconds (11.9-14.5)
[2018-10-29 07:47] LABS: ANION GAP 10.8 mmol/L (8-16); CALCIUM 8.8 mg/dL (8.4-10.2); CREATININE, SERUM 1.9 mg/dL (0.72-1.25)
[2018-10-29 07:58] LABS: POTASSIUM 2.8 mmol/L (3.5-5.1)
[2018-10-29] MEDS: IPRATROPIUM BROMIDE 0.02% 2.5 ML NEB NEB PRN ×2 (08:00→20:09)
[2018-10-29] MEDS: FERROUS SULFATE 325 MG TAB PO SCH (08:31)
[2018-10-29] MEDS: APIXAB 2.5 MG TABLET PO SCH ×2 (08:31→16:30)
[2018-10-29] MEDS: FUROSEMIDE 20 MG TAB PO SCH (08:35)
[2018-10-29] MEDS: FINASTERIDE 5 MG TAB PO SCH (08:35)
[2018-10-29] MEDS: FOLIC ACID 1 MG TAB PO SCH (08:35)
[2018-10-29] MEDS: BUPROPION HCL SR 150 MG TAB PO SCH ×2 (08:36→16:30)
[2018-10-29] MEDS: PANTOPRAZOLE SOD 40 MG TABEC PO SCH (08:36)
[2018-10-29] MEDS: SENNOSIDES 8.6 MG TAB PO SCH (08:36)
[2018-10-29] MEDS: OSELTAMIVIR PHOSPHATE 75 MG CAP PO SCH ×2 (08:36→16:30)
[2018-10-29] MEDS: CYANOCOBALAMIN 1,000 MCG TAB PO SCH (08:36)
[2018-10-29] MEDS: MIRTAZAPINE 15 MG TAB PO SCH (08:37)
[2018-10-29] MEDS: CARVEDILOL 3.125 MG TAB PO SCH ×2 (08:44→17:58)
[2018-10-29] MEDS ORDERED: POTASSIUM CHLORIDE 20MEQ/15ML UDC NG NR (09:30)
[2018-10-29] MEDS: POTASSIUM CHLORIDE 20MEQ/15ML UDC NG SCH (09:56)
[2018-10-29] MEDS: CEFEPIME 1GM/NS 0.9% 50 ML 50 ML IV SCH ×2 (09:57→21:30)
[2018-10-29] MEDS: VANCOMYCIN 1GM/NS 250 ML 250 ML IV SCH (10:50)
--- NOTE | 2018-10-29 13:32 | Progress Note ---
DATE: 10/29/2018 Internal Medicine Progress Note SUBJECTIVE: The patient is still on the ventilator. OBJECTIVE: VITAL SIGNS: Blood pressure 97/49, temperature 97.3, heart rate 84 per minute, respiratory rate 15 per minute, and oxygen saturation 100%. HEART: Showed irregularly irregular heart rate. Normal S1, S2 sounds. LUNGS: Show decreased breath sounds bilaterally. ABDOMEN: Soft. EXTREMITIES: Show redness on both lower extremities, significantly decreased edema on the left leg. LABORATORY DATA: BMP; sodium 137, potassium 2.8, chloride 90, CO2 of 39, BUN 41, creatinine 1.90, glucose 119. CBC; white blood count 7.02, hemoglobin is 10.6, hematocrit 34.0, platelet count 171,000. PT 21.9, INR 1.84. AST 34, ALT 21, total bilirubin 0.8, and alkaline phosphatase of 60. FINAL IMPRESSION: 1. Acute respiratory failure secondary to bilateral pneumonia and congestive heart failure. 2. Bilateral pneumonia. 3. Acute on chronic systolic and diastolic congestive heart failure. 4. Cellulitis on both lower extremities. 5. Chronic renal insufficiency, stage 3. 6. Chronic atrial fibrillation. 7. Hypertension with chronic renal insufficiency and hypertensive heart disease. PLAN OF TREATMENT: Continue ventilator support, wean as tolerated. I do not see a lining parts sewer on the case and like to schedule a felt cementer on the case also. We are going to continue Atrovent q.6 hours, cefepime 1 g IV twice a day, vancomycin 1 g IV once a day, propofol for sedation, carvedilol 6.25 mg twice a day, ferrous sulfate 325 mg daily, melatonin 3 mg at bedtime, trazodone 75 mg at bedtime, Colace 100 mg q.8 hours. He is on Tamiflu 75 mg twice a day for a total of seven days because of the flu. He is on respiratory isolation. Also continue vitamin B12 of 1000 mcg with feeding tube daily, Proscar 5 mg daily, Remeron . Continue Eliquis 2.5 mg twice a day. Continue Aricept 10 mg daily, folic acid 1 mg daily, Protonix 40 mg daily, hydralazine 25 mg q.6 hours, potassium chloride 40 mEq as needed for hypokalemia and potassium less than 3.5. Continue bupropion 100 mg twice a day, Lipitor 20 mg daily, furosemide 20 mg daily, acetazolamide 125 mg daily. The patient remain in critical condition. He has episode of nonsustained ventricular tachycardia also, so far he is stable right now. I am going to start to weaning off the ventilator as tolerated. Continue monitoring BUN and creatinine and electrolytes. Time spent around 58 minutes. MD EPHRAIM Oconnell/MODL /[id number]
[2018-10-29 14:00] LABS: ABG HCO3 37 mmol/L (23-28); ABG PCO2 55 mmHg (41-51); ABG PH 7.44 (7.31-7.41); ABG PO2 82 mmHg (80-105)
[2018-10-29] MEDS: PROPOFOL IV EMULSION 10MG/ML 100 ML IV SCH (14:44)
--- NOTE | 2018-10-29 14:48 | Progress Note ---
DATE: 10/29/2018 Pulmonary Critical Care Progress Note SUBJECTIVE: The patient has remained on the ventilator overnight. His sedation was held this morning, but he is still a little somnolent. PHYSICAL EXAMINATION: VITAL SIGNS: The blood pressure is 165/66 and his respiratory rate is 19. Saturation is 100%. He is on a pressure regulated volume control at a rate of 14. HEENT: Shows no facial swelling or erythema. The oropharynx is normal. There is no oral endotracheal tube. CARDIAC: Reveals regular rate and rhythm with normal S1, S2. There are no murmurs or rubs. LUNGS: Auscultation of lungs reveals clear breath sounds bilaterally. There is no wheezing. ABDOMEN: Soft, nontender. There is no rebound or guarding. EXTREMITIES: Show no leg edema or calf tenderness. There is no cyanosis or clubbing. SKIN: Shows no rashes. NEUROLOGICAL: Shows no focal abnormalities. LABORATORY DATA: The BUN to creatinine ratio is 34:2.13. The potassium is 2.9. The liver tests are normal. The hemoglobin is 10.6 and the platelet count is 171. IMPRESSION: 1. Pneumonia with severe sepsis, present on admission. 2. Influenza. 3. Acute respiratory failure. 4. Chronic congestive heart failure. 5. Paroxysmal atrial fibrillation. 6. Hypertension. 7. Chronic renal failure. PLAN: 1. Continue to observe patient off sedation. Once he is more awake, we will begin a spontaneous breathing trial. 2. Enteral feedings. 3. Continue antibiotics. 4. Deep vein thrombosis prophylaxis. 5. Continue treatment for atrial fibrillation. MD IVANNA Hanson/CONTRERAS /[id number]
--- NOTE | 2018-10-29 15:50 | NUR ---
Visit made by the Spiritual Care Department Rastafarian Pastoral Visitor, Srinath Hurtado. Pt sleeping soundly and no family at bedside. PV provided prayer. BETHANY MOSS Lunchroom Supervisor Spiritual Care Department O: [phone] Pager: [phone] ([phone] number calling from)
[2018-10-29] MEDS: ACETAZOLAMIDE SODIUM 500 MG/VIAL IV SCH (16:29)
[2018-10-29] MEDS: POTASSIUM CHLORIDE 20MEQ/15ML UDC NG PRN (17:57)
--- NOTE | 2018-10-29 18:20 | NUR ---
Sedation and tube feed turned off at 0800 for ventilator weaning done this AM. Patient tolerated well. ABG drawn but patient is not completely waking up yet. He nods yes and no and moves lower extremities to command. Patient grimaces to sternal rub and any repositioning. Will wait for patient to be able to lift and hold head up and open his eyes before extubation. possible tomorrow. restarted tube feed at 1800. patient repositioned throughout the day q2 and prn. vital signs stable and urine output adequate,
[2018-10-29] MEDS: ATORVASTATIN 20 MG TAB PO SCH (21:29)
[2018-10-30] VITALS (27 sets, daily range): BP systolic 120–179; BP diastolic 48–128
[2018-10-30] MEDS: IPRATROPIUM BROMIDE 0.02% 2.5 ML NEB NEB PRN ×2 (00:55→11:37)
--- NOTE | 2018-10-30 04:58 | NUR ---
PATIENT AWAKE AND RESTLESS, ATTEMPTS TO REDIRECT UNSUCCESSFUL. ATTEMPTING TO GRAB ETT, BILATERAL WRIST RESTRAINTS APPLIED
[2018-10-30] MEDS: DOCUSATE SODIUM LIQD 100 MG/10 ML UDC NG SCH ×3 (06:20→22:02)
--- NOTE | 2018-10-30 07:00 | NUR ---
No family present. Emergency Management Specialist left a card describing availability of senior production manager and instructions on how to contact a senior production manager. BETHANY MOSS Emergency Management Specialist Spiritual Care Department O: [phone] Pager: [phone] ([phone] number calling from)
[2018-10-30] MEDS: FERROUS SULFATE 325 MG TAB PO SCH (08:18)
[2018-10-30] MEDS: FINASTERIDE 5 MG TAB PO SCH (08:18)
[2018-10-30] MEDS: POTASSIUM CHLORIDE 20MEQ/15ML UDC NG SCH (08:18)
[2018-10-30] MEDS: HYDRALAZINE HCL 25 MG TAB PO SCH ×2 (08:18→21:26)
[2018-10-30] MEDS: PANTOPRAZOLE SOD 40 MG TABEC PO SCH (08:18)
[2018-10-30] MEDS: FUROSEMIDE 20 MG TAB PO SCH (08:18)
[2018-10-30] MEDS: SENNOSIDES 8.6 MG TAB PO SCH (08:18)
[2018-10-30] MEDS: BUPROPION HCL SR 150 MG TAB PO SCH ×2 (08:18→21:26)
[2018-10-30] MEDS: CYANOCOBALAMIN 1,000 MCG TAB PO SCH (08:18)
[2018-10-30] MEDS: FOLIC ACID 1 MG TAB PO SCH (08:18)
[2018-10-30] MEDS: OSELTAMIVIR PHOSPHATE 75 MG CAP PO SCH ×2 (08:18→21:26)
[2018-10-30] MEDS: APIXAB 2.5 MG TABLET PO SCH ×2 (08:18→21:26)
[2018-10-30] MEDS: CARVEDILOL 3.125 MG TAB PO SCH ×2 (08:18→21:26)
[2018-10-30] MEDS: CEFEPIME 1GM/NS 0.9% 50 ML 50 ML IV SCH ×2 (09:14→22:02)
[2018-10-30] MEDS: VANCOMYCIN 1GM/NS 250 ML 250 ML IV SCH (11:00)
--- NOTE | 2018-10-30 11:00 | NUR ---
Dr Vivas to bedside; 1125 extubated to 2L NC.
[2018-10-30] MEDS ORDERED: FUROSEMIDE INJ 10 MG/ML 4 ML VIAL IV ONE (11:15)
[2018-10-30] MEDS ORDERED: POTASSIUM CHLORIDE 20MEQ/100ML 100 ML IV ONE (11:15)
--- NOTE | 2018-10-30 11:31 | Progress Note ---
DATE: 10/30/2018 Internal Medicine Progress Note SUBJECTIVE: The patient is on the weaning process from the ventilator right now, more alert. PHYSICAL EXAMINATION: VITAL SIGNS: Blood pressure 97/49, temperature 97.3, heart rate 84 per minute, respiratory rate 16 per minute, oxygen saturation 100%. HEART: Showed irregularly irregular heart rate. Normal S1, S2 sound. LUNGS: Clear bilaterally. ABDOMEN: Soft. EXTREMITIES: Show decreased swelling and redness of both lower extremities. LABORATORY DATA: BMP; sodium 137, potassium 2.8, chloride 90, CO2 of 39, BUN 41, creatinine 1.90, glucose 118. CBC; white blood count 7.02, hemoglobin 10.6, hematocrit 34.0, platelet count 171,000. The last BMP shows sodium 137, potassium 3.3, chloride 90, CO2 of 39, BUN 41, creatinine 1.90, glucose 119. PT 21.9, INR 1.84, AST 34, ALT 21, total bilirubin 0.8, alkaline phosphatase 60. FINAL IMPRESSION: 1. Acute respiratory failure secondary to combination of pneumonia and congestive heart failure. 2. Bilateral pneumonia. 3. Ipbxh-fn-rttzoun systolic and diastolic congestive heart failure. 4. Cellulitis of both lower extremities, which is slowly resolving. 5. Chronic renal insufficiency, stage III. 6. Chronic atrial fibrillation. 7. Flu. 8. Hypertension with chronic renal failure and hypertensive heart disease with congestive heart failure. PLAN: We are going to repeat CBC and BMP. Wean off the ventilator as tolerated. Time spent around 55 minutes. MD EPHRAIM Oconnell/CONTRERAS /[id number]
[2018-10-30] MEDS: PROPOFOL IV EMULSION 10MG/ML 100 ML IV SCH (13:17)
--- NOTE | 2018-10-30 13:32 | Progress Note ---
DATE: 10/30/2018 Pulmonary Medicine Progress Note SUBJECTIVE: Mr. Infante was seen and examined at bedside. He continues on ventilator at this time. He was finally able to awaken with attempts to minimize sedation. The patient with large endotracheal secretions. However, his RSBI is in the 80s range. We will try that is still pending. REVIEW OF SYSTEMS: No headaches, no bleeding. OBJECTIVE: VITAL SIGNS: Afebrile, vital signs noted per the chart record. GENERAL: In no acute distress, although he is anxious on ventilator. Awake. HEENT: Normocephalic, atraumatic. NECK: Supple. Throat midline. LUNGS: Bilateral air entry, few rhonchi. CARDIOVASCULAR: S1 and S2. No murmurs, rubs, or gallops. ABDOMEN: Soft, nontender. EXTREMITIES: No clubbing. No cyanosis. There is no edema. INTEGUMENT: No rash or purpura. LABORATORY DATA: 3.3 potassium, 41 BUN, 1.9 creatinine, 7 white count, 34 hematocrit, 171 platelets. 1.84 INR. IMPRESSION AND PLAN: 1. Acute respiratory failure, intubated. 2. Flu, pneumonia. 3. Chronic congestive heart failure, with decompensation. 4. Acute on chronic kidney failure. 5. Influenza, acute. 6. Treat for community-acquired pneumonia. Continue weaning at this time. evaluate him to see if we can extubate him, but we will have to account for the high amount of airway secretions. We will check some neuromuscular parameters. Continue the Tamiflu. Continue antibiotics. The patient will have further blood thinners at this time. Comfort medicines if needed. Greater than 30 minutes in direct care today. Multiple evaluation. MD MARLY Hart/CONTRERAS /[id number]
[2018-10-30] MEDS: ACETAZOLAMIDE SODIUM 500 MG/VIAL IV SCH (17:11)
[2018-10-30 17:53] LABS: ABG PH 7.39 (7.31-7.41)
[2018-10-30 17:55] LABS: ABG PCO2 70 mmHg (41-51)
[2018-10-30 17:56] LABS: ABG HCO3 42 mmol/L (23-28); ABG PO2 46 mmHg (80-105)
--- NOTE | 2018-10-30 18:54 | Diagnostic Imaging Report ---
Examination: Single AP view of the chest. COMPARISON: Portable chest 10/29/2018 INDICATION: Desaturation IMPRESSION: 1. Lines and Tubes: Interval placement of enteric tube which has its tip coiled in the right lower lung, and is likely located in the right bronchus. Left cardiac device is stable. 2. Bibasilar atelectasis. No definite consolidation. 3. Enlarged cardiac silhouette. Mild central venous congestion. 4. No acute bony abnormalities. 5. Findings discussed with Josefina, the patient's in ICU nurse October 30, 2018 at 1855 hours Signed by: Dr. Lanre Ohara M.D. on 10/30/2018 6:51 PM
--- NOTE | 2018-10-30 19:16 | Diagnostic Imaging Report ---
Exam: Limited abdominal film Clinical History: NG tube placement Comparison: None. DISCUSSION: See impression. IMPRESSION: 1. No NG tube is visualized. 2. Dilated large bowel, with maximal measurement of 7 cm. 3. Left retrocardiac opacity and likely left pleural effusion. The staff physician below has personally reviewed this exam on the date of dictation. Signed by: Dr. Lanre Ohara M.D. on 10/30/2018 7:12 PM
--- NOTE | 2018-10-30 19:17 | NUR ---
Nutrition Intervention Note RD Recommendation(s) for Physician: -Rec continuous TF of Vital AF 1.2 @55mL/hr, providing 1584kcal, 99g protein, and 1070mL water. -Rec 30mL water flushes q 4hr; additional per MD discretion -Check daily labs, weight, GI tolerance -Consult PATIENT ADMITTING REPRESENTATIVE for swallow eval if extubated Plan of Care: RD following, monitoring for tolerance and adequacy, TF Nutrition reason for involvement: Diagnosis, New TF RD Assessment 10/30 - Chart reviewed. 83yo M, who was admitted for acute respiratory failure. Pt was discussed during AM rounds. Pt was intubated and on vent. TF was held for possible extubation today. Off sedation. No pressor meds. Pending Abd X-ray. Unable to obtain hx from pt; no family on bedside. Will continue to monitor and follow. Principal Problems/Diagnoses: 1. Acute respiratory failure, intubated. 2. Flu, pneumonia. 3. Chronic congestive heart failure, with decompensation. 4. Acute on chronic kidney failure. 5. Influenza, acute. PMH: HTN, COPD, CAD, Afib, hypothyroidism, CHF, chronic renal disease, HLD, anemia GI: abdomen soft, round, flatus present, NGT present Skin: no pressure wound noted, per RN Labs: (10/30) No lab today Meds: colace, abx, KCl, eliquis, protonix, lasix, folic acid, feosol, vit B12 Ht: 68in Wt: 184lb BMI: 28kg/m2 IBW: 154lb Malnutrition Evaluation (10/30) The patient does not meet criteria for a specified degree of malnutrition at this time. Will re-evaluate at follow-up as appropriate. Nutrition Prescription (Diet Order): Nepro @ 40mL/hr Estimated Nutritional Needs: Calories: 1826 2075kcal (22-25kcal/kg/d) Weight used: current BW Protein:83 100g (1-1.2g/kg/d) Weight used: current BW Diet Adequacy: N/A Diet Education Needs Assessment: Diet education indicated, but patient not appropriate for education at this time. Nutrition Care Level: mod Nutrition Diagnosis: Inadequate oral intake related to current medical status as evidenced by pt requiring EN as main source of nutrition. Goal: Patient will meet 75-100% of estimated needs by follow up Progress: N/A Interventions: Composition, Rate, Route Monitoring/Evaluation: Total energy intake, Total protein intake, Formula/Solution, Weight change, Labs, GI tolerance Signed: Loni Craven MS, RD, LD
--- NOTE | 2018-10-30 21:14 | Diagnostic Imaging Report ---
EXAM: ABDOMEN-1VIEW (KUB) DATE: 10/30/2018 8:12 PM INDICATION: NG tube placement COMPARISON: KUB 10/30/2018 at 1816 hours FINDINGS: Limited abdominal film for tube placement purposes. LINES/TUBES: Cardiac lead projecting over the right ventricle. Nasogastric tube tip and sidehole projecting over the mid to distal gastric body. BOWEL PATTERN: Persistent dilated large bowel measuring up to 7.1 cm. SOFT TISSUES: Aortic calcifications. No mass effect. LUNG BASES: Stable retrocardiac opacity. BONES: No acute findings. IMPRESSION: Nasogastric tube tip and sidehole project over the gastric body. Signed by: DR. Kenrick Coronado MD on 10/30/2018 9:10 PM
[2018-10-30] MEDS: ATORVASTATIN 20 MG TAB PO SCH (21:26)
--- NOTE | 2018-10-30 21:33 | NUR ---
NGT placement confirmed by x-ray, patient attempting to pull at bi-pap mask and ngt, ottoniel wrist restraints applied
[2018-10-31] VITALS (26 sets, daily range): BP systolic 97–206; BP diastolic 44–105
[2018-10-31 05:29] LABS: BASOPHILS % 0.3 % (0.0-1.0); EOSINOPHILS # (AUTO) 0.3 (0.0-0.4); HEMATOCRIT 35.4 % (38.2-49.6); HEMOGLOBIN 10.7 g/dL (14.0-18.0); LYMPHOCYTES # (AUTO) 2.9 (1.0-3.2); LYMPHOCYTES % 26.3 % (18.0-39.1); MEAN CORPUSCULAR HEMOGLOBIN 29.3 pg (28-32); MEAN CORPUSCULAR HGB CONC 30.2 g/dL (31-35); MONOCYTES # (AUTO) 0.9 (0.2-0.8); MONOCYTES % 8.2 % (4.4-11.3); NEUTROPHILS # (AUTO) 6.7 (2.1-6.9); NEUTROPHILS % 61.8 % (38.7-80.0); PLATELET COUNT 180 x10e3/uL (140-360); RED BLOOD COUNT 3.65 x10e6/uL (4.3-5.7); RED CELL DISTRIBUTION WIDTH 14.4 % (11.7-14.4)
[2018-10-31] MEDS: DOCUSATE SODIUM LIQD 100 MG/10 ML UDC NG SCH ×3 (05:46→21:30)
[2018-10-31 06:05] LABS: ANION GAP 9.2 mmol/L (8-16); CALCIUM 9.6 mg/dL (8.4-10.2); CREATININE, SERUM 1.93 mg/dL (0.72-1.25); POTASSIUM 3.2 mmol/L (3.5-5.1)
--- NOTE | 2018-10-31 06:30 | NUR ---
Call placed for Dr Vivas regarding AM CO2 of 43, message left, awaiting return call
[2018-10-31] MEDS: CARVEDILOL 3.125 MG TAB PO SCH ×2 (08:00→16:10)
[2018-10-31] MEDS: IPRATROPIUM BROMIDE 0.02% 2.5 ML NEB NEB PRN (08:00)
[2018-10-31] MEDS ORDERED: LABETALOL HCL 5 MG/ML 20ML VIAL IV PRN (08:30)
[2018-10-31] MEDS ORDERED: LABETALOL HCL 20 MG/4 ML SYRINGE IV PRN (08:45)
[2018-10-31] MEDS: POTASSIUM CHLORIDE 20MEQ/15ML UDC NG SCH (08:46)
[2018-10-31] MEDS: FERROUS SULFATE 325 MG TAB PO SCH (08:48)
[2018-10-31] MEDS: FUROSEMIDE 20 MG TAB PO SCH (08:48)
[2018-10-31] MEDS: CYANOCOBALAMIN 1,000 MCG TAB PO SCH (08:48)
[2018-10-31] MEDS: FINASTERIDE 5 MG TAB PO SCH (08:48)
[2018-10-31] MEDS: OSELTAMIVIR PHOSPHATE 75 MG CAP PO SCH ×2 (08:48→16:10)
[2018-10-31] MEDS: SENNOSIDES 8.6 MG TAB PO SCH (08:48)
[2018-10-31] MEDS: PANTOPRAZOLE SOD 40 MG TABEC PO SCH (08:48)
[2018-10-31] MEDS: FOLIC ACID 1 MG TAB PO SCH (08:48)
[2018-10-31] MEDS: BUPROPION HCL SR 150 MG TAB PO SCH ×2 (08:48→16:10)
[2018-10-31] MEDS: APIXAB 2.5 MG TABLET PO SCH ×2 (08:48→16:10)
[2018-10-31] MEDS ORDERED: POTASSIUM CHLORIDE 20MEQ/100ML 100 ML IV ONE (10:00)
[2018-10-31 10:15] LABS: ABG PCO2 67 mmHg (41-51); ABG PO2 264 mmHg (80-105)
[2018-10-31 10:16] LABS: ABG HCO3 42 mmol/L (23-28)
[2018-10-31] MEDS: VANCOMYCIN 1GM/NS 250 ML 250 ML IV SCH (11:43)
[2018-10-31] MEDS: HYDRALAZINE HCL 25 MG TAB PO SCH ×2 (11:43→17:34)
[2018-10-31] MEDS: CEFEPIME 1GM/NS 0.9% 50 ML 50 ML IV SCH ×2 (11:43→21:30)
--- NOTE | 2018-10-31 11:57 | Progress Note ---
DATE: 10/31/2018 Internal Medicine Progress Note SUBJECTIVE: The patient was extubated yesterday. He is on nasogastric tube feeding right now. PHYSICAL EXAMINATION: VITAL SIGNS: Blood pressure 191/78, temperature 37.1, heart rate 63 per minute, respiratory rate 19 per minute, oxygen saturation 100%. HEART: Shows irregularly irregular heart rhythm. Normal S1, S2 sound. LUNGS: Showed decreased breath sounds bilaterally. ABDOMEN: Soft. EXTREMITIES: Show significant decrease in the edema that he had before, and decrease in the redness that he had before. LABORATORY DATA: BMP; sodium 139, potassium 3.2, chloride 90, CO2 of 43, BUN 49, creatinine 1.83, glucose 134. On the CBC; white blood count 10.8, hemoglobin 10.7, hematocrit 35.4, platelet count of 180,000. PT 21.9, INR 1.84. AST 34, ALT 21, total bilirubin 0.8, alkaline phosphatase is 60. FINAL IMPRESSION: 1. Acute respiratory failure secondary to chronic obstructive pulmonary disease exacerbation with segmental pneumonia secondary to congestive heart failure. 2. He has bilateral pneumonia. 3. Aqicm-di-smhqjvc systolic and diastolic congestive heart failure. 4. Coronary artery disease with 100% stenosis in the right coronary artery and moderate in left anterior descending. DIAGNOSES: 1. Acute on chronic renal failure stage 3. 2. Hypokalemia. 3. Chronic atrial fibrillation with rapid ventricular response. 4. Anemia of chronic disease. 5. He has influenza. 6. Uncontrolled hypertension with chronic renal insufficiency. 7. Hypertensive heart disease with congestive heart failure. PLAN: Continue cefepime 1 g IV twice a day, vancomycin 1 g IV once a day. Atrovent q.6 hours, carvedilol 6.25 mg twice a day, ferrous sulfate 325 mg daily, melatonin 3 mg at bedtime, acetazolamide 125 mg once a day. Hydralazine we are going to increase to 25 mg q.6 hours due to hypertension. Continue Tamiflu 75 mg twice a day for a total of seven days. Continue respiratory isolation. Continue vitamin B12 1000 mcg daily, Proscar 5 mg daily, Protonix 40 mg daily for gastritis prophylaxis. Continue Colace 100 mg q.8 hours, Aricept 10 mg daily. Folic acid 1 mg daily. Senna one tablet daily, potassium chloride 40 mEq daily and as needed for hypokalemia, bupropion 150 mg twice daily, Lipitor 20 mg daily, furosemide 20 mg daily, and Eliquis 2.5 mg twice a day because of a history of atrial fibrillation. The patient has been extubated. We are going to start the referral for long-term care hospital if approved by [employer], which usually denies every transfer to LTAC, but we are going to try because the patient's meets criteria since he has been in the intensive care unit and he has multiple medical conditions. The case has been discussed with the nursing staff. The patient is having some difficulty breathing, getting breathing treatments right now. Time spent around 59 minutes. MD EPHRAIM Oconnell/CONTRERAS /[id number]
--- NOTE | 2018-10-31 14:14 | Diagnostic Imaging Report ---
Examination: Single AP view of the chest. COMPARISON: None. INDICATION: Shortness of breath DISCUSSION: Lines/tubes: Enteric tube with the distal tip not visualized. Single lead cardiac device. Lungs: Pulmonary edema. Pleura: Probable small effusions. Right pneumothorax with gap of 1.6 cm. Heart and mediastinum: Prominent heart size. Bones and soft tissues: No acute bony abnormalities. IMPRESSION: New small right lung pneumothorax. Attention on follow-up. Mild cardiomegaly with edema. Discussed with patients nurse Rocha at 2:10pm. Signed by: Dr. Omkar Jarvis M.D. on 10/31/2018 2:11 PM
--- NOTE | 2018-10-31 14:23 | NUR ---
ORDERS FOR LTAC EVAL MOT INITIATED AND PLACED IN WHITE EVELOPE INSIDE OF CHART CM ATTEMPTED X 3 TO REACH SON DAVID AT [phone] NO ANSWER AND NO VOICE MAIL NOTE ON FRONT OF CHART FOR NURSES TO CALL CM [phone] WHEN SON CALLS OR ARRIVES SO THAT LTAC PROCESS CAN BE INITIATED
--- NOTE | 2018-10-31 15:43 | Progress Note ---
DATE: 10/31/2018 Pulmonary Medicine Progress Note SUBJECTIVE: The patient is on BiPAP all night. He had some difficulty breathing during the night. However, we were able to get him off the BiPAP, 5 L/minutes by nasal cannula. He is sometimes able to expectorate. He is restrained. He had an NG tube that was placed, although one time it was errantly placed in lung. Tube feeds at 40 mL/h. Water at 55 mL every 2 hours reportedly. REVIEW OF SYSTEMS: No headaches, no bleeding. OBJECTIVE: VITAL SIGNS: Afebrile, vital signs noted per the chart record. GENERAL: In no acute distress, alert, calm, but very weak. HEENT: Normocephalic, atraumatic. NECK: Supple. Throat midline. LUNGS: Bilateral air entry, few rhonchi, few rales. CARDIOVASCULAR: S1, S2. No murmurs, rubs, or gallops. ABDOMEN: Soft, nontender. EXTREMITIES: No clubbing or cyanosis. There is 1+ edema. INTEGUMENT: No rash or purpura. LABORATORY DATA: Potassium 3.2, creatinine 1.9, bicarbonate 43. White count 11, hematocrit 35. 1.8 was the last INR a few days ago. IMPRESSION AND PLAN: 1. Hypokalemia. 2. Misplaced NG tube including coiling in the airway. 3. Acute respiratory failure, intubated and extubated. 4. Pneumonia, community acquired and influenza. 5. Fluid overload. Continue potassium 55 mL every 2 hours. With this, we will add only about 600 mL a day. Continue followup electrolytes. Repeat chest x-ray in the morning. Repeat chest x-ray now to rule out a late pneumothorax. Await aggressive PT and OT as he is able to participate MD MARLY Hart/CONTRERAS /[id number]
[2018-10-31] MEDS: ACETAZOLAMIDE SODIUM 500 MG/VIAL IV SCH (16:10)
--- NOTE | 2018-10-31 16:23 | Consultation ---
DATE OF CONSULTATION: 10/31/2018 REASON FOR CONSULTATION: Hypokalemia and possible chronic kidney disease. HISTORY OF PRESENT ILLNESS: This is an 83-year-old male, who was admitted with acute respiratory failure. Currently, history is from the chart. The patient was having progressive shortness of breath prior to admission and was felt to have COPD exacerbation. His chest x-ray showed scant alveolar infiltrates, opacity bilaterally. The patient was intubated. PAST MEDICAL HISTORY: Includes: 1. Congestive heart failure with ejection fraction of 25%. 2. Depression. 3. COPD. 4. Hypertension. 5. Pacemaker in 2014. 6. Dyslipidemia. 7. Appendectomy in 1963. 8. Anemia of chronic disease. 9. ? prostate issues. 10. Constipation. 11. Chronic swelling. 12. Chronic atrial fibrillation. HOME MEDICATIONS: Include trazodone, mirtazapine, Aricept, bupropion, finasteride, lactulose, Colace, folic acid, iron sulfate, vitamin B12, lisinopril, Zaroxolyn, Lasix, clonidine, Coreg, Lipitor, Xarelto, aspirin, Spiriva, Symbicort, and albuterol. ALLERGIES: BENZODIAZEPINE. FAMILY HISTORY: Not available. REVIEW OF SYSTEMS: Unable to get from the patient. CURRENT MEDICATIONS: Eliquis, Senokot, Protonix, Lasix, folic acid, Proscar, iron sulfate, vitamin B12, Wellbutrin, Tamiflu, potassium chloride, Coreg, Colace, cefepime, Atrovent, vancomycin, propofol, labetalol, and hydralazine. PHYSICAL EXAMINATION: VITAL SIGNS: The patient is on nasal cannula. Temperature 97.1 and blood pressure 189/60. NECK: No JVD. No bruits. LUNGS: Rhonchi. No rales. HEART: Irregularly irregular. No S3. No S4. ABDOMEN: Nontender, nondistended. No hepatomegaly or splenomegaly. EXTREMITIES: No clubbing. No cyanosis. No edema. NEUROLOGIC: Cranial nerves 2 through 12 are grossly intact. Sensation intact. Motor intact. LABS: Sodium 129, potassium 3.2, chloride 90, CO2 of 43, and glucose 134. White count 10.8, hemoglobin 10.7. Urinalysis; negative for leukocyte esterase, negative for protein. Blood gas yesterday pH 7.39, pCO2 of 70, pO2 of 46, and bicarb 42. ASSESSMENT AND PLAN: 1. Hypokalemia with metabolic alkalosis and respiratory acidosis. This maybe secondary to chronic obstructive pulmonary disease, but also the patient is on Lasix. So for now, we will decrease Lasix dose to once a day. Monitor his I's and O's. 2. Hypokalemia. Potassium will be replaced. We will be checking his magnesium level also. 3. Chronic kidney disease. We will get a renal ultrasound and a basic workup for chronic kidney, which will include urine protein, urine creatinine, UPEP, renal ultrasound, fractional excretion of sodium and urine eosinophil. Most likely, the patient has chronic kidney disease secondary to hypertension. In short, admitted with respiratory failure, currently on nasal cannula with hypokalemia and increased creatinine. Workup in progress. Vikash Lovell MD MA/CONTRERAS /[id number]
[2018-10-31 18:47] LABS: CREATININE,URINE RANDOM 48.43 mg/dL (63-166); SODIUM,URINE 51 mmol/L; TOTAL PROTEIN, URINE 64.8 mg/dL (1-14)
[2018-10-31 20:54] LABS: EOSINOPHIL SMEAR,URINE NONE SEEN (NONE SEEN)
--- NOTE | 2018-10-31 21:22 | Diagnostic Imaging Report ---
EXAMINATION: CHEST SINGLE (PORTABLE) COMPARISON: Chest x-ray 10/31/2018 INDICATION: Pneumothorax follow-up ^screening ^[id number] ^2015 ^Y DISCUSSION: Frontal view of the chest obtained at 2019 hours. HEART AND MEDIASTINUM: Stable cardiomegaly and AICD lead. The mediastinum is midline. LINES: Enteric tube extends past the diaphragm LUNGS: The lungs are diffusely hyperinflated. Right basilar airspace opacity is similar. No new findings in the left lung. No interstitial edema PLEURA: Right apical pneumothorax measures 2.2 cm (previously, 1.9 cm) BONES AND SOFT TISSUES: No focal osseous lesion. The soft tissues are normal. IMPRESSION: Enlarging right pneumothorax. No evidence of tension. Persistent right basilar infiltrates. Support devices as described above. Signed by: Dr. Cherelle Lange MD on 10/31/2018 9:19 PM
[2018-10-31] MEDS: ATORVASTATIN 20 MG TAB PO SCH (21:29)
[2018-11-01] VITALS (23 sets, daily range): BP systolic 101–170; BP diastolic 22–89
[2018-11-01] MEDS: HYDRALAZINE HCL 25 MG TAB PO SCH ×4 (00:09→17:07)
[2018-11-01 05:03] LABS: BASOPHILS % 0.3 % (0.0-1.0); EOSINOPHILS # (AUTO) 0.3 (0.0-0.4); HEMATOCRIT 34.3 % (38.2-49.6); HEMOGLOBIN 10.4 g/dL (14.0-18.0); LYMPHOCYTES # (AUTO) 3.1 (1.0-3.2); LYMPHOCYTES % 27.2 % (18.0-39.1); MEAN CORPUSCULAR HEMOGLOBIN 29.1 pg (28-32); MEAN CORPUSCULAR HGB CONC 30.3 g/dL (31-35); MEAN CORPUSCULAR VOLUME 95.8 fL (81-99); MONOCYTES # (AUTO) 0.9 (0.2-0.8); MONOCYTES % 8.2 % (4.4-11.3); NEUTROPHILS # (AUTO) 6.9 (2.1-6.9); NEUTROPHILS % 60.9 % (38.7-80.0); PLATELET COUNT 193 x10e3/uL (140-360); RED BLOOD COUNT 3.58 x10e6/uL (4.3-5.7); RED CELL DISTRIBUTION WIDTH 14.3 % (11.7-14.4)
[2018-11-01 05:30] LABS: ANION GAP 11.2 mmol/L (8-16); CALCIUM 9.6 mg/dL (8.4-10.2); CREATININE, SERUM 1.69 mg/dL (0.72-1.25); POTASSIUM 3.2 mmol/L (3.5-5.1)
[2018-11-01] MEDS: DOCUSATE SODIUM LIQD 100 MG/10 ML UDC NG SCH ×3 (06:10→22:00)
--- NOTE | 2018-11-01 06:14 | Diagnostic Imaging Report ---
EXAMINATION: CHEST SINGLE (PORTABLE) INDICATION: chf COMPARISON: Chest x-ray 10/31/2018 at 2019 hours FINDINGS: AP view TUBES and LINES: Enteric tube extends below the gastroesophageal junction, out of the field of view. Left cardiac device. LUNGS: Stable right basilar airspace opacity. Central vascular congestion. PLEURA: Right apical pneumothorax, slightly decreased with gap of 1.9 cm, previously 2.2 cm. HEART AND MEDIASTINUM: Stable cardiomegaly. Mediastinum midline. BONES AND SOFT TISSUES: No acute osseous lesion. Soft tissues are unremarkable. UPPER ABDOMEN: No free air under the diaphragm. IMPRESSION: Slightly decreased right pneumothorax. Stable right basilar infiltrate. Signed by: DR. Kenrick Coronado MD on 11/01/2018 6:11 AM
[2018-11-01] MEDS: POTASSIUM CHLORIDE 20MEQ/15ML UDC NG PRN (06:36)
--- NOTE | 2018-11-01 07:24 | Diagnostic Imaging Report ---
EXAMINATION: Renal ultrasound. CLINICAL HISTORY :Chronic kidney disease COMPARISON: <None available.> TECHNIQUE: Grayscale and color Doppler evaluation of the kidneys and bladder was performed in transverse and longitudinal planes. DISCUSSION: RIGHT KIDNEY: The right kidney measures 10 cm in length and shows normal echogenicity. No hydronephrosis, shadowing calculi or solid mass lesions. LEFT KIDNEY: The left kidney measures 9.8 cm in length and shows normal echogenicity. 0.7 cm calculus in the interpolar region. No hydronephrosis. No solid mass lesion. BLADDER: Unremarkable. Right and left ureteral jets are identified. IMPRESSION: Nonobstructing left renal calculus as above. Otherwise unremarkable sonographic appearance of the kidneys. Signed by: Dr. Taqueria Will M.D. on 11/01/2018 7:21 AM
[2018-11-01] MEDS: IPRATROPIUM BROMIDE 0.02% 2.5 ML NEB NEB PRN ×2 (08:00→20:45)
[2018-11-01] MEDS ORDERED: HYDRALAZINE HCL 20 MG/ML VIAL IV PRN (09:00)
[2018-11-01] MEDS: FUROSEMIDE 20 MG TAB PO SCH (09:48)
[2018-11-01] MEDS: CYANOCOBALAMIN 1,000 MCG TAB PO SCH (09:48)
[2018-11-01] MEDS: APIXAB 2.5 MG TABLET PO SCH ×2 (09:48→16:51)
[2018-11-01] MEDS: SENNOSIDES 8.6 MG TAB PO SCH (09:48)
[2018-11-01] MEDS: FERROUS SULFATE 325 MG TAB PO SCH (09:48)
[2018-11-01] MEDS: FINASTERIDE 5 MG TAB PO SCH (09:48)
[2018-11-01] MEDS: FOLIC ACID 1 MG TAB PO SCH (09:48)
[2018-11-01] MEDS: CARVEDILOL 3.125 MG TAB PO SCH ×2 (09:48→16:51)
[2018-11-01] MEDS: OSELTAMIVIR PHOSPHATE 75 MG CAP PO SCH (09:48)
[2018-11-01] MEDS: PANTOPRAZOLE SOD 40 MG TABEC PO SCH (09:48)
[2018-11-01] MEDS: BUPROPION HCL SR 150 MG TAB PO SCH ×2 (09:48→16:51)
[2018-11-01] MEDS: POTASSIUM CHLORIDE 20MEQ/15ML UDC NG SCH (09:49)
[2018-11-01] MEDS: CEFEPIME 1GM/NS 0.9% 50 ML 50 ML IV SCH ×2 (10:16→21:30)
[2018-11-01] MEDS: VANCOMYCIN 1GM/NS 250 ML 250 ML IV SCH (11:03)
--- NOTE | 2018-11-01 11:29 | Progress Note ---
DATE: 11/01/2018 Internal Medicine Progress Note SUBJECTIVE: The patient is doing well , on an NG tube feeding. We will do a speech therapy evaluation to see if he can swallow. PHYSICAL EXAMINATION: VITAL SIGNS: Blood pressure 103/52, temperature 37.8, heart rate 50 per minute, respiratory rate 18 per minute, oxygen saturation 98%. CARDIAC: On physical exam, heart rate showed irregularly irregular heart rate. Normal S1, S2 sound. LUNGS: Clear bilaterally. ABDOMEN: Soft. EXTREMITIES: Showed decreased swelling and redness of both lower extremities. LABORATORY DATA: BMP; sodium 141, potassium 3.2, chloride 97, CO2 of 36, BUN 54, creatinine 1.69, glucose 127. CBC; white blood count 11.2, hemoglobin 10.4, hematocrit 34.3, platelet count of . PT 21.9, INR 1.84, AST 34, ALT 21, total bilirubin 0.8, alkaline phosphatase is 60. FINAL IMPRESSION: 1. Acute respiratory failure. 2. Bilateral pneumonia. 3. Flu. 4. Qkpnb-il-yngdwlg renal failure, stage 3 to 4. 5. Bkhgt-pu-brgxaoa systolic and diastolic congestive heart failure. 6. Hypokalemia. 7. Chronic atrial fibrillation. 8. Hypertension with hypertensive heart disease with congestive heart failure and also chronic renal insufficiency. PLAN OF TREATMENT: Continue oxygen. We will do speech therapy evaluation. Continue Atrovent q.6 hours, cefepime 1 g IV twice a day, vancomycin 1 g IV once a day, continue Tamiflu 75 mg twice a day. Contact isolation. Continue vitamin B12 1000 mcg daily, Proscar 5 mg daily, Protonix 40 mg daily, Colace mg q.8 hours, labetalol 5 mg IV q.6 hours as needed for hypertension, Aricept 10 mg at bedtime, folic acid 1 mg daily, senna one tablet daily, potassium chloride 40 mEq daily, continue bupropion 150 mg twice a day, Lipitor 20 mg daily, furosemide 20 mg daily, Eliquis 2.5 mg twice a day, potassium chloride 40 mEq as needed for hypokalemia. BMP tomorrow. Magnesium level tomorrow. Carvedilol 6.25 mg twice. Ferrous sulfate 325 mg daily. Melatonin 3 mg at bedtime. Acetazolamide sodium 125 mg daily. Hydralazine 25 mg q.6 hours. Case discussed with nurse at bedside. I explained to the patient the plan of care. The pillowcase turner will be working on the [facility] referral if approved by the insurance company. The patient still remains in the ICU. We are going to see if he can swallow today. We are going to also order PT, OT when the patient is sable to do that. Time spent 55 minutes. MD EPHRAIM Oconnell/CONTRERAS /[id number]
--- NOTE | 2018-11-01 13:07 | NUR ---
WOUND CARE SCREEN: PATIENT IS AN 83 YEAR OLD MALE PATIENT ADMITTED FOR ACUTE HYPERCAPNIA. PATIENT IS BEDBOUND AND HAS A CALF WOUND. DRESSING ORDERS IN PLACE. PATIENT'S JUAN A SCORE IS 16 WITH APPROPRIATE PUP INTERVENTIONS IN PLACE; ALTERNATING PRESSURE RELIEF MATTRESS IN PLACE AND BILATERAL HEEL PROTECTORS WITH PILLOW SUSPENSION AND ORDERS TO TURN EVERY 2 HOURS AND PRN BEING ENFORCED. RECOMMENDATION: -PATIENT IS BEDBOUND AND IS UNABLE TO TURN ON CUE. PATIENT IS CURRENTLY POSITIVE FOR FLU. THE RECOMMENDED JUAN A SCORE WOUND BE <12 AND APPROPRIATE INTERVENTIONS ADDED, IF NOT IN PLACE. THANK YOU FOR THIS WOUND CARE SCREEN. Addendum: 11/01/18 at 1318 by Luz Oscar RN Amended: Links added.
--- NOTE | 2018-11-01 15:27 | NUR ---
Bedside MBS in progress. Vital signs stable
[2018-11-01] MEDS: ACETAZOLAMIDE SODIUM 500 MG/VIAL IV SCH (16:50)
[2018-11-01] MEDS: ATORVASTATIN 20 MG TAB PO SCH (21:00)
--- NOTE | 2018-11-01 21:11 | Progress Note ---
DATE: 11/01/2018 Pulmonary Medicine Progress Note SUBJECTIVE: Mr. Infante is seen and examined at bedside. He continues to have slow progress. He is confused. He is alert, oriented x1. MBS was done showing excessive pocketing in the airway and penetration with very small aspiration and he was recommended for n.p.o. The patient currently on 3 L/minute by nasal cannula oxygen. 94% oxygen saturation. He is on tube feeds 40 mL/h and 55 mL every 2 hours of water. REVIEW OF SYSTEMS: Cannot get reliably, as he is altered. OBJECTIVE: VITAL SIGNS: Afebrile, vital signs noted per the chart record. GENERAL: In no acute distress. Alert, calm mostly, but sometimes slightly anxious. HEENT: Normocephalic, atraumatic. NECK: Supple. Throat midline. LUNGS: Bilateral air entry, few rhonchi. CARDIOVASCULAR: S1, S2. No murmurs, rubs, or gallops. ABDOMEN: Soft, nontender. EXTREMITIES: No clubbing, no cyanosis. There is 1+ edema to the legs. INTEGUMENT: No rash. No purpura. LABORATORY DATA: 11.3 white count, 34 hematocrit, 193 platelets. 3.2 potassium, 54 BUN, 1.7 creatinine. Vancomycin level was 19 a couple days ago. IMPRESSION: 1. Acute respiratory failure, intubated/extubated. 2. Acute influenza. 3. Pneumonia, influenza plus or minus coexisting bacterial pneumonia. 4. Complicated pneumothorax. 5. Glhtd-xk-getfgep kidney failure. 6. Encephalopathy. 7. Hypokalemia. 8. Congestive heart failure with low ejection fraction. 9. Hypertension, depression, atrial fibrillation history, chronic obstructive pulmonary disease. Continue antibiotics as ordered. Continue NG tube feeds for now. He is to continue n.p.o. The patient will need another x-ray for pneumothorax evaluation. Continue diuretics. Continue apixaban. We will follow along closely. Duc Vivas MD GMN/MODL /[id number]
[2018-11-02] VITALS (24 sets, daily range): BP systolic 104–167; BP diastolic 47–98
--- NOTE | 2018-11-02 00:06 | Diagnostic Imaging Report ---
EXAM: ABDOMEN-1VIEW (KUB) DATE: 11/01/2018 11:04 PM INDICATION: NG tube placement COMPARISON: None FINDINGS: Limited radiograph for tube placement. LINES/TUBES: Nasogastric tube tip projects over the gastric body, sidehole projects near the gastroesophageal junction. Left chest wall cardiac device with lead overlying right ventricle. BOWEL PATTERN: Air within the colon. SOFT TISSUES: Unremarkable. LUNG BASES: Please refer to same-day chest radiograph. BONES: No acute findings. IMPRESSION: Nasogastric tube tip projects over the gastric body, sidehole projects near the gastroesophageal junction. Signed by: DR. Kenrick Coronado MD on 11/02/2018 12:03 AM
[2018-11-02] MEDS: HYDRALAZINE HCL 25 MG TAB PO SCH ×5 (00:22→23:20)
--- NOTE | 2018-11-02 05:38 | Diagnostic Imaging Report ---
EXAMINATION: CHEST SINGLE (PORTABLE) INDICATION: pneumothorax COMPARISON: Chest x-ray 11/01/2018 FINDINGS: AP view TUBES and LINES: Enteric tube extends below the gastroesophageal junction, out of the field of view. Left cardiac device. LUNGS: Stable right basilar airspace opacity. Central vascular congestion. PLEURA: Right apical pneumothorax, mildly decreased with gap of 1.5 cm, previously 1.9 cm. HEART AND MEDIASTINUM: Stable cardiomegaly. Mediastinum midline. BONES AND SOFT TISSUES: No acute osseous lesion. Soft tissues are unremarkable. UPPER ABDOMEN: No free air under the diaphragm. IMPRESSION: Mildly decreased right pneumothorax. Stable right basilar infiltrate. Signed by: DR. Kenrick Coronado MD on 11/02/2018 5:35 AM
[2018-11-02] MEDS: DOCUSATE SODIUM LIQD 100 MG/10 ML UDC NG SCH ×3 (05:43→22:47)
[2018-11-02 06:07] LABS: ANION GAP 11.6 mmol/L (8-16); CALCIUM 9.9 mg/dL (8.4-10.2); CREATININE, SERUM 1.71 mg/dL (0.72-1.25); POTASSIUM 3.6 mmol/L (3.5-5.1)
[2018-11-02 06:24] LABS: BASOPHILS % 0.2 % (0.0-1.0); EOSINOPHILS # (AUTO) 0.7 (0.0-0.4); EOSINOPHILS % 5.7 % (0.0-6.0); HEMATOCRIT 34.9 % (38.2-49.6); HEMOGLOBIN 10.6 g/dL (14.0-18.0); LYMPHOCYTES # (AUTO) 3.3 (1.0-3.2); MEAN CORPUSCULAR HEMOGLOBIN 29.4 pg (28-32); MEAN CORPUSCULAR HGB CONC 30.4 g/dL (31-35); MEAN CORPUSCULAR VOLUME 96.9 fL (81-99); MONOCYTES % 7.8 % (4.4-11.3); NEUTROPHILS # (AUTO) 7.5 (2.1-6.9); PLATELET COUNT 230 x10e3/uL (140-360); RED CELL DISTRIBUTION WIDTH 14.3 % (11.7-14.4)
--- NOTE | 2018-11-02 07:43 | Diagnostic Imaging Report ---
Exam: Modified barium swallow History: Respiratory failure Comparison: None available Findings: Fluoroscopic evaluation of the swallowing mechanism with swallowing of a variety of thin, thick and semisolid barium impregnated substances was performed. Multiple images were obtained and saved to the medical record. There is laryngeal penetration with all substances administered to the level of the folds. Trace aspiration with thin liquids and nectar is noted. Please see the full report provided by the Speech Pathologist. Fluoroscopy time: 3.45 minutes Total dose: 5.87 mGy Impression: Laryngeal penetration with trace aspiration. Signed by: Dr. Evan Mcdaniel DO on 11/02/2018 7:40 AM
[2018-11-02] MEDS: IPRATROPIUM BROMIDE 0.02% 2.5 ML NEB NEB PRN ×3 (07:48→19:40)
[2018-11-02] MEDS: SENNOSIDES 8.6 MG TAB PO SCH (09:32)
[2018-11-02] MEDS: APIXAB 2.5 MG TABLET PO SCH ×2 (09:32→16:38)
[2018-11-02] MEDS: PANTOPRAZOLE SOD 40 MG TABEC PO SCH (09:32)
[2018-11-02] MEDS: CARVEDILOL 3.125 MG TAB PO SCH ×2 (09:32→16:38)
[2018-11-02] MEDS: FOLIC ACID 1 MG TAB PO SCH (09:32)
[2018-11-02] MEDS: FERROUS SULFATE 325 MG TAB PO SCH (09:32)
[2018-11-02] MEDS: FINASTERIDE 5 MG TAB PO SCH (09:32)
[2018-11-02] MEDS: FUROSEMIDE 20 MG TAB PO SCH (09:32)
[2018-11-02] MEDS: CYANOCOBALAMIN 1,000 MCG TAB PO SCH (09:32)
[2018-11-02] MEDS: BUPROPION HCL SR 150 MG TAB PO SCH ×2 (09:32→16:38)
[2018-11-02] MEDS: CEFEPIME 1GM/NS 0.9% 50 ML 50 ML IV SCH ×2 (09:42→22:47)
[2018-11-02] MEDS ORDERED: VANCOMYCIN 1GM/NS 250 ML 250 ML IV SCH (11:00)
--- NOTE | 2018-11-02 11:00 | NUR ---
SPEECH THERAPY AT BEDSIDE. PATIENT TOLERATED THERAPY WELL.
--- NOTE | 2018-11-02 11:41 | Progress Note ---
DATE: 11/02/2018 Internal Medicine Progress Note SUBJECTIVE: The patient is doing better. He did have an NG tube, he pulled out the NG tube yesterday. He failed modified barium swallow. The speech therapy will do some swallowing stimulation today. PHYSICAL EXAMINATION: VITAL SIGNS: Blood pressure is 165/75, temperature 37.6, heart rate 61 per minute, respiratory rate 18 per minute, and oxygen saturation 98%. LABORATORY DATA: On blood work, we have CBC with white count 12.5, hemoglobin 10.6, hematocrit 34.9, platelet count of 230,000. On the BMP; sodium 144, potassium 3.6, chloride 101, CO2 of 35, BUN 53, creatinine 1.71, glucose 126, magnesium 2.1. Troponin was high at 0.369 when he came, 0.226 right now. Blood culture, urine culture negative. Sputum cultures show Andria albicans. Last chest x-ray showed mild decrease in right pneumothorax and stable right basilar infiltrate. Actually, we also have an abdominal x-ray, which was taken yesterday. Has nasogastric tube, . Modified barium swallow showed laryngeal penetration with trace aspiration. FINAL IMPRESSION: 1. Acute respiratory failure, status post ventilator support. 2. Right lower lobe pneumonia, most likely secondary to aspiration. 3. Coronary artery disease. 4. Paroxysmal atrial fibrillation. 5. Acute on chronic systolic and diastolic congestive heart failure. 6. Status post permanent pacemaker. 7. Aspiration. 8. Flu. 9. Acute on chronic renal failure stage 4. 10. Hypertension with chronic renal insufficiency and hypertensive heart disease with congestive heart failure. PLAN OF TREATMENT: We are going to continue with current medication regimen, which includes Atrovent q.6 hours, cefepime 1 g IV twice a day, vancomycin 1 g IV once a day, Tamiflu 75 mg twice a day by NG tube, vitamin B12 1000 mcg by NG tube daily, Proscar 5 mg daily, Protonix 40 mg daily, Colace 100 mg every 8 hours, hydralazine 10 mg IV q.4 hours as needed for hypertension, Aricept 10 mg at bedtime, folic acid 1 mg daily, senna one tablet daily, potassium chloride 40 mEq daily as needed for hypokalemia. Continue bupropion 150 mg twice a day, Lipitor 20 mg daily, furosemide 20 mg daily, Eliquis 2.5 mg twice a day, carvedilol 6.25 mg twice a day, ferrous sulfate 325 mg daily, melatonin 3 mg at bedtime, acetazolamide sodium 125 mg daily, hydralazine 25 mg q.6 hours. Consult on report have been reviewed. Lab have been reviewed. Medication list have been reviewed. The patient's case has been discussed with the nursing staff and patient. Time spent 55 minutes. MD EPHRAIM Oconnell/CONTRERAS /[id number]
--- NOTE | 2018-11-02 11:44 | NUR ---
PHYSICAL THERAPY BAKARI BEDSIDE. PATIENT TOLERATING WELL. VITAL SIGNS STABLE.
--- NOTE | 2018-11-02 12:01 | Progress Note ---
DATE: 11/02/2018 Pulmonary Medicine Progress Note SUBJECTIVE: Mr. Infante was seen and examined at bedside. He is on tube feeds at 40 mL/h and 55 mL of water every 2 hours. NG tube was replaced after the patient pulled it out, 3 L/minute via nasal cannula. Mack with reasonable urine output. REVIEW OF SYSTEMS: Cannot get, as he is altered. OBJECTIVE: VITAL SIGNS: Afebrile, vital signs noted per the chart record. GENERAL: In no acute distress, alert, somewhat anxious in bed. HEENT: Normocephalic, atraumatic. NECK: Supple. Throat midline. LUNGS: Bilateral air entry, rare rhonchi. CARDIOVASCULAR: S1 and S2. No murmurs, rubs, or gallops. ABDOMEN: Soft, nontender. EXTREMITIES: No clubbing, no cyanosis. There is 1+ edema. INTEGUMENT: No rash. No purpura. LABS: 1.7 creatinine, 35 bicarbonate, 3.6 potassium, 13 white count, 35 hematocrit, and 230 platelets. IMPRESSION AND PLAN: 1. Acute respiratory failure, intubated/extubated. 2. Fluid overload. 3. Pneumonia, influenza type. 4. . 5. Acute on chronic kidney failure. 6. Delirium, prolonged. Continue NG tube feeding. Followup as he strengthens and improving. Consider swallow re-evaluation in future. Continue tube feeds for now. Oxygen per protocol. Continue antibiotics as well as blood thinners. Mobilize him as possible. Consider neuropsychiatric examination to ensure improvement. MD MARLY Hart/MODL /[id number]
[2018-11-02] MEDS: ACETAZOLAMIDE SODIUM 500 MG/VIAL IV SCH (16:37)
[2018-11-02] MEDS: ATORVASTATIN 20 MG TAB PO SCH (21:40)
[2018-11-03] VITALS (26 sets, daily range): BP systolic 110–192; BP diastolic 31–115
[2018-11-03 04:35] LABS: BASOPHILS % 0.3 % (0.0-1.0); EOSINOPHILS # (AUTO) 0.7 (0.0-0.4); EOSINOPHILS % 7.3 % (0.0-6.0); HEMOGLOBIN 10.9 g/dL (14.0-18.0); LYMPHOCYTES # (AUTO) 2.1 (1.0-3.2); LYMPHOCYTES % 22.2 % (18.0-39.1); MEAN CORPUSCULAR HEMOGLOBIN 29.8 pg (28-32); MEAN CORPUSCULAR HGB CONC 31.1 g/dL (31-35); MEAN CORPUSCULAR VOLUME 95.6 fL (81-99); MONOCYTES # (AUTO) 0.8 (0.2-0.8); MONOCYTES % 8.3 % (4.4-11.3); NEUTROPHILS # (AUTO) 5.7 (2.1-6.9); NEUTROPHILS % 61.4 % (38.7-80.0); PLATELET COUNT 239 x10e3/uL (140-360); RED BLOOD COUNT 3.66 x10e6/uL (4.3-5.7); RED CELL DISTRIBUTION WIDTH 14.2 % (11.7-14.4)
[2018-11-03 04:55] LABS: ANION GAP 12.5 mmol/L (8-16); POTASSIUM 3.5 mmol/L (3.5-5.1)
[2018-11-03] MEDS: HYDRALAZINE HCL 25 MG TAB PO SCH ×4 (05:09→23:34)
[2018-11-03] MEDS: DOCUSATE SODIUM LIQD 100 MG/10 ML UDC NG SCH ×3 (05:09→21:01)
[2018-11-03 07:24] LABS: CREATININE, SERUM 1.73 mg/dL (0.72-1.25)
--- NOTE | 2018-11-03 09:05 | NUR ---
ASSESSMENT: Spiritual distress Pt's son, Stephen, at bedside. Pt identifies as [employer]. Pt's son expressed interest in having father anointed and communion. Intervention: Provided unhurried pastoral presence. Provided information concerning [employer]agogue sacraments. Provided prayer from Synagogue tradition. Outcome: Pt and son expressed appreciation for visit and support. Will follow as able. BETHANY MOSS Rehabilitation Worker Spiritual Care Department O: [phone] Pager: [phone] ([phone] calling from)
[2018-11-03] MEDS: CARVEDILOL 3.125 MG TAB PO SCH ×2 (09:11→16:29)
[2018-11-03] MEDS: APIXAB 2.5 MG TABLET PO SCH ×2 (09:11→16:29)
[2018-11-03] MEDS: FERROUS SULFATE 325 MG TAB PO SCH (09:11)
--- NOTE | 2018-11-03 09:12 | NUR ---
PT'S SON AT BEDSIDE EXPLAINED LTAC EVAL ORDER MOT SIGNED AND CHOICE LETTER SIGNED SUMEET WITH [employer] NOTIFIED OF EVAL PLAN TRANSFER WHEN APPROVED IF DENIED; PT WILL GO BACK TO [facility]
[2018-11-03] MEDS: BUPROPION HCL SR 150 MG TAB PO SCH ×2 (09:22→16:29)
[2018-11-03] MEDS: SENNOSIDES 8.6 MG TAB PO SCH (09:22)
[2018-11-03] MEDS: FUROSEMIDE 20 MG TAB PO SCH (09:22)
[2018-11-03] MEDS: FOLIC ACID 1 MG TAB PO SCH (09:22)
[2018-11-03] MEDS: CYANOCOBALAMIN 1,000 MCG TAB PO SCH (09:22)
[2018-11-03] MEDS: FINASTERIDE 5 MG TAB PO SCH (09:22)
[2018-11-03] MEDS: CEFEPIME 1GM/NS 0.9% 50 ML 50 ML IV SCH ×2 (09:23→21:01)
[2018-11-03] MEDS: PANTOPRAZOLE 40 MG 10ML VIAL IV SCH (10:13)
[2018-11-03] MEDS: IPRATROPIUM BROMIDE 0.02% 2.5 ML NEB NEB PRN ×2 (11:05→19:27)
[2018-11-03] MEDS: VANCOMYCIN 750MG/NS 150ML IVPB 150 ML IV SCH (11:23)
--- NOTE | 2018-11-03 16:12 | NUR ---
Nutrition Intervention Note RD Recommendation(s) for Physician: - Rec continuous TF of Osmolite 1.2 @65mL/hr, providing 1872kcal, 87g protein, and 1280mL water. - Water flushes per MD discretion (Entered TF order per Dr. Villa) - Check daily labs, weight, GI tolerance Plan of Care: RD following, monitoring for tolerance and adequacy, TF Nutrition reason for involvement: Follow up RD Assessment 11/03 Pt was discussed during AM rounds. TF with Nepro @40mL/hr was well tolerated. <10mL of gastric residual today, per RN Sasha. MBS on 11/01 showed laryngeal penetration with trace aspiration; PARKING LOT ATTENDANT following for therapy. Reviewed labs. Stable renal function with K WNL. No Phos obtained. No plan for HD at this time. Communicated TF rec with Dr. Villa. OK to order standard formula and increase water flushes to 200mL q 6hr. RD will continue to monitor and follow. 10/30 - Chart reviewed. 83yo M, who was admitted for acute respiratory failure. Pt was discussed during AM rounds. Pt was intubated and on vent. TF was held for possible extubation today. Off sedation. No pressor meds. Pending Abd X-ray. Unable to obtain hx from pt; no family on bedside. Will continue to monitor and follow. Principal Problems/Diagnoses: 1. Acute respiratory failure, intubated. 2. Flu, pneumonia. 3. Chronic congestive heart failure, with decompensation. 4. Acute on chronic kidney failure. 5. Influenza, acute. PMH: HTN, COPD, CAD, Afib, hypothyroidism, CHF, chronic renal disease, HLD, anemia GI: abdomen soft, round, non-tender, flatus present, NGT present Skin: no pressure wound noted, per RN Labs: (11/03) Na 146 H, BUN 54 H, Creatinine 1.73 H, Glucose 125 H (10/30) No lab today Meds: colace, abx, protonix, lasix, folic acid, vit B12, eliquis Ht: 68in Wt: 184lb; 164.5lb BMI: 28kg/m2 IBW: 154lb Malnutrition Evaluation (10/30) The patient does not meet criteria for a specified degree of malnutrition at this time. Will re-evaluate at follow-up as appropriate. Nutrition Prescription (Diet Order): Nepro @ 40mL/hr Estimated Nutritional Needs: Calories: 1826 2075kcal (22-25kcal/kg/d) Weight used: current BW Protein: 83 100g (1-1.2g/kg/d) Weight used: current BW Diet Adequacy: N/A Diet Education Needs Assessment: Diet education indicated, but patient not appropriate for education at this time. Nutrition Care Level: mod Nutrition Diagnosis: Inadequate oral intake related to current medical status as evidenced by pt requiring EN as main source of nutrition. Goal: Patient will meet 75-100% of estimated needs by follow up Progress: Progressing Interventions: Composition, Rate, Route Monitoring/Evaluation: Total energy intake, Total protein intake, Formula/Solution, Weight change, Labs, GI tolerance Signed: Loni Craven MS, RD, LD
[2018-11-03] MEDS: ACETAZOLAMIDE SODIUM 500 MG/VIAL IV SCH (16:29)
[2018-11-03] MEDS: AMLODIPINE BESYLATE 5 MG TAB NG SCH (16:51)
[2018-11-03 17:11] LABS: ALPHA 2 GLOBULIN URINE PEP 15.7 % (.)
--- NOTE | 2018-11-03 19:03 | Progress Note ---
DATE: 11/03/2018 Internal Medicine Progress Note SUBJECTIVE: The patient is doing well now, we are waiting for the insurance to approve him to go to [facility]. PHYSICAL EXAMINATION: VITAL SIGNS: Blood pressure 174/70, temperature 38.7, heart rate 60 per minute, respiratory rate 20 per minute, and oxygen saturation 99%. HEART: Shows irregularly irregular heart rate. Normal S1, S2 sound. LUNGS: Clear bilaterally. LABORATORY DATA: BMP; sodium 146, potassium 3.5, chloride 105, CO2 of 32, BUN 54, creatinine 1.73, glucose 125. CBC; white blood count 9270, hemoglobin 10.9, hematocrit 35.0, platelet count of 239,000. PT 21.9, INR 1.84, AST 34, ALT 21, total bilirubin 0.8, alkaline phosphatase 60. FINAL IMPRESSION: 1. Acute respiratory failure, finally being weaned off the ventilator. 2. Atrial fibrillation which is chronic. 3. Acute on chronic renal failure. 4. Hypokalemia. 5. Small pneumothorax. 6. Pneumonia, most likely secondary to aspiration. 7. Hypertension with current renal insufficiency on hypertensive heart disease with congestive failure. 8. Acute on chronic systolic congestive heart failure. PLAN OF TREATMENT: Continue cefepime 1 g IV twice a day, vancomycin 1 g IV daily, Atrovent q.6 hours, Aricept 10 mg at bedtime, folic acid 1 mg daily, Eliquis 2.5 mg twice a day, hydralazine 25 mg q.6 hours, Lipitor 20 mg daily, bupropion 150 mg twice a day, furosemide 20 mg daily, acetazolamide sodium 125 mg daily, hydralazine 10 mg IV q.4 hours as needed for hypertension, carvedilol 6.25 mg twice a day, ferrous sulfate 325 mg daily, melatonin 3 mg at bedtime, Colace 100 mg q.8 hours, Protonix 40 mg daily, vitamin B12 1000 mcg daily, finasteride 5 mg daily, senna one tablet daily, potassium chloride 40 mEq one as needed for hypertension. We are going to increase the hydralazine to 50 mg q.8 hours. Awaiting transfer to [place]. time spent 55 minute. MD EPHRAIM Oconnell/CONTRERAS /[id number]
[2018-11-03] MEDS: ATORVASTATIN 20 MG TAB PO SCH (20:58)
--- NOTE | 2018-11-03 21:21 | NUR ---
PATIENT COUGHING UP MODERATE AMOUNTS OF BRIGHT RED BLOOD. SUCTIONED PATIENT AND PERFORMED ORAL CARE. WILL CONTINUE TO MONITOR
--- NOTE | 2018-11-03 22:00 | NUR ---
PATIENT PLACED ON BIPAP TO HELP WITH SOB AND RR. WILL PATIENT HAVING CRACKLES AND RHONCHI. WILL CONTINUE TO MONITOR
--- NOTE | 2018-11-03 22:30 | NUR ---
PATIENT IS VERY ANXIOUS AND PULLING RESTRAINTS LOOSE AND WILL NOT KEEP BIPAP ON. STILL HAVING SOB AND LUNG SOUNDS STILL WITH CRACKLES AND RHONCHI. CALLED AND HAD ATTENDING PAGED, DR MCNULTY OENOLOGIST FOR PATIENTS ATTENDING. WILL ASK IF PATIENT CAN HAVE SOMETHING FOR ANXIETY AND IF ONE TIME DOSE OF LASIX IS NEEDED
--- NOTE | 2018-11-03 23:17 | NUR ---
BOILER BLOWER ATTENDING DR MCNULTY NEVER RETURNED PHONE CALL. CALLED DR LICEA AND INFORMED HIM OF PATIENTS INCREASING ANXIETY, THE EPISODE OF HEMOPTYSIS, COMPLAINTS OF SOB AND UNABLE TO WEAR BIPAP AND ASSESSMENT OF LUNG SOUNDS. NEW ORDERS RECEIVED AND WAS READ BACK AND CONFIRMED WERE TO STOP NGT FEEDINGS UNTIL AIRWAY IS CLEAR, STOP ELIQUIS FOR NOW, STAT CXR, LASIX 60MG IV ONCE, HALDOL 1MG IV Q6H PRN,
[2018-11-03] MEDS ORDERED: FUROSEMIDE INJ 10 MG/ML 4 ML VIAL IV ONE (23:30)
[2018-11-03] MEDS ORDERED: FUROSEMIDE INJ 10 MG/ML 4 ML VIAL ONE (23:39)
[2018-11-04] VITALS (22 sets, daily range): BP systolic 93–173; BP diastolic 38–75
[2018-11-04] MEDS: HALOPERIDOL LACTATE 5 MG/ML VIAL IV PRN ×2 (00:05→22:16)
[2018-11-04] MEDS ORDERED: POTASSIUM CHLORIDE 20MEQ/15ML UDC NG ONE (00:15)
--- NOTE | 2018-11-04 00:22 | Diagnostic Imaging Report ---
EXAMINATION: CHEST SINGLE (PORTABLE) INDICATION: SOB X1 HEMOPTYSIS COMPARISON: Chest x-ray 11/02/2018 FINDINGS: AP view TUBES and LINES: Enteric tube extends below the gastroesophageal junction, out of the field of view. Left cardiac device. LUNGS: Worsening right basilar airspace opacity. Central vascular congestion and mild interstitial edema. PLEURA: Right apical pneumothorax, mildly decreased with gap of 1 cm, previously 1.5 cm. HEART AND MEDIASTINUM: Stable cardiomegaly. Mediastinum midline. BONES AND SOFT TISSUES: No acute osseous lesion. Soft tissues are unremarkable. UPPER ABDOMEN: No free air under the diaphragm. IMPRESSION: Mildly decreased right pneumothorax. Worsening right basilar infiltrate. Mild interstitial edema. Signed by: DR. Kenrick Coronado MD on 11/04/2018 12:19 AM
[2018-11-04] MEDS: IPRATROPIUM BROMIDE 0.02% 2.5 ML NEB NEB PRN ×3 (01:34→19:19)
--- NOTE | 2018-11-04 02:54 | Progress Note ---
DATE: 11/03/2018 Pulmonary Medicine Progress Note. SUBJECTIVE: Mr. Infante was seen and examined at bedside. He continues off ventilator. However, he was getting increasingly agitated earlier today. The patient seems to be having more and more shortness of breath. He has appeared possibly choking on his secretions. The patient is on restraints right now. A 1.6 L in, 1.4 L out recorded. Blood pressure is on the high side of 160s, 140s, and 180s. REVIEW OF SYSTEMS: Cannot get reliably, as the patient is altered. OBJECTIVE: HEENT: Normocephalic, atraumatic. NECK: Supple. Throat midline. LUNGS: Bilateral air entry, bilateral [id number] rhonchi, or rare wheezes. Upper airway with few gurgling sound in the upper airway. CARDIOVASCULAR: S1 and S2. No murmurs, rubs, or gallops. ABDOMEN: Soft, nontender. EXTREMITIES: No clubbing. No cyanosis. There is 1+ edema. INTEGUMENT: No rash or purpura. LABS: 3.5 potassium, 54 BUN, 0.7 creatinine. 9.2 white count, 35 hematocrit, 239 platelets. IMPRESSION AND PLAN: 1. Acute respiratory failure, intubated/extubated. 2. Bilateral pneumonia. 3. Fluid overload. 4. Hehhx-pe-usudzae kidney failure. 5. COPD with exacerbation. 6. History of nonsustained ventricular tachycardia. 7. Chronic atrial fibrillation. 8. Influenza acute. 9. Encephalopathy, not otherwise specified. 10. Dysphagia, acute. Repeat electrolytes in the morning. Give a trial of diuresis. Give additional potassium. The patient remain in intubated and guarded condition. Continue antibiotics which have been adjusted for the kidney function. We will follow along closely. I believe it is close to being time to have a vancomycin level being done. We will follow along closely. MD MARLY Hart/MODL /[id number]
--- NOTE | 2018-11-04 03:13 | NUR ---
PATIENT BEING TURNED Q2H WITH [facility] FOR SUPPORT WHEN LYING ON LEFT AND OR RIGHT SIDE. HOWEVER, WITH MULTIPLE TIMES EDUCATING PATIENT ON REASONS WHY WE TURN, PATIENT ALWAYS TO SHIFT HIS WAY BACK TO A LYING POSITION ON HIS BACK. WILL CONTINUE TO TURN AND EDUCATE REGARDLESS IF PATIENT IS CONFUSED
[2018-11-04 04:46] LABS: ANION GAP 13.4 mmol/L (8-16); CALCIUM 9.6 mg/dL (8.4-10.2); CREATININE, SERUM 1.94 mg/dL (0.72-1.25); POTASSIUM 3.4 mmol/L (3.5-5.1)
[2018-11-04 05:28] LABS: BASOPHILS % 0.3 % (0.0-1.0); EOSINOPHILS # (AUTO) 0.5 (0.0-0.4); EOSINOPHILS % 4.7 % (0.0-6.0); HEMATOCRIT 36.7 % (38.2-49.6); HEMOGLOBIN 11.5 g/dL (14.0-18.0); LYMPHOCYTES # (AUTO) 1.9 (1.0-3.2); LYMPHOCYTES % 17.6 % (18.0-39.1); MEAN CORPUSCULAR HEMOGLOBIN 29.3 pg (28-32); MEAN CORPUSCULAR HGB CONC 31.3 g/dL (31-35); MEAN CORPUSCULAR VOLUME 93.4 fL (81-99); MONOCYTES % 8.8 % (4.4-11.3); NEUTROPHILS # (AUTO) 7.3 (2.1-6.9); PLATELET COUNT 316 x10e3/uL (140-360); RED BLOOD COUNT 3.93 x10e6/uL (4.3-5.7); RED CELL DISTRIBUTION WIDTH 14.1 % (11.7-14.4)
[2018-11-04] MEDS: DOCUSATE SODIUM LIQD 100 MG/10 ML UDC NG SCH ×3 (05:29→21:03)
[2018-11-04] MEDS: HYDRALAZINE HCL 25 MG TAB PO SCH ×3 (05:29→17:56)
--- NOTE | 2018-11-04 06:59 | NUR ---
Resumed NGT FEEDINGS PER ORDER NURSE DISCRETION
[2018-11-04] MEDS: SENNOSIDES 8.6 MG TAB PO SCH (09:02)
[2018-11-04] MEDS: FINASTERIDE 5 MG TAB PO SCH (09:02)
[2018-11-04] MEDS: PANTOPRAZOLE 40 MG 10ML VIAL IV SCH (09:02)
[2018-11-04] MEDS: FOLIC ACID 1 MG TAB PO SCH (09:02)
[2018-11-04] MEDS: FERROUS SULFATE 325 MG TAB PO SCH (09:02)
[2018-11-04] MEDS: FUROSEMIDE 20 MG TAB PO SCH (09:02)
[2018-11-04] MEDS: CYANOCOBALAMIN 1,000 MCG TAB PO SCH (09:02)
[2018-11-04] MEDS: AMLODIPINE BESYLATE 5 MG TAB NG SCH (09:02)
[2018-11-04] MEDS: CARVEDILOL 3.125 MG TAB PO SCH ×2 (09:02→16:56)
[2018-11-04] MEDS: BUPROPION HCL SR 150 MG TAB PO SCH ×2 (09:03→16:56)
[2018-11-04] MEDS: POTASSIUM CHLORIDE 20MEQ/15ML UDC NG PRN (09:03)
[2018-11-04] MEDS: CEFEPIME 1GM/NS 0.9% 50 ML 50 ML IV SCH ×2 (10:40→21:04)
[2018-11-04] MEDS: VANCOMYCIN 750MG/NS 150ML IVPB 150 ML IV SCH (11:30)
--- NOTE | 2018-11-04 18:57 | Progress Note ---
DATE: 11/04/2018 Pulmonary Medicine Progress Note SUBJECTIVE: Mr. Infante was seen and examined at bedside. Multiple times he had escalation of the treatment. Last night, he had perceived dyspnea for which he received Haldol and Lasix. He improved after that. The patient later on the night had extensive paradoxical work of breathing and sense of accessory muscle recruitment. He was given BiPAP for 4 hours with good rest and thereafter came off BiPAP with improvement. REVIEW OF SYSTEMS: Cannot get reliably as he is altered. OBJECTIVE: VITAL SIGNS: Afebrile, vital signs noted per the chart record. GENERAL: No acute distress, but he looks weak in bed. HEENT: Normocephalic, atraumatic. NECK: Supple. Throat midline. LUNGS: Bilateral air entry, few rhonchi especially at base. CARDIOVASCULAR: S1 and S2. No murmurs, rubs, or gallops. ABDOMEN: Obese, but soft. EXTREMITIES: No clubbing, no cyanosis. There is trace edema. INTEGUMENT: No rash, no purpura. LABS: White count 11, hematocrit 13, platelets 316. Sodium 146, potassium 3.4, BUN 6, creatinine 1.94. IMPRESSION AND PLAN: 1. Influenza pneumonia. 2. Fluid overload. 3. Chronic obstructive pulmonary disease with exacerbation. 4. Community-acquired pneumonia superimposed. 5. Congestive heart failure with low ejection fraction. 6. Hypertension. 7. Depression. 8. Atrial fibrillation. 9. Metabolic encephalopathy, plus or minus. Continue antibiotics at this time. Continue to mobilize him slowly. We will give him another dose of steroids given his breathing issues. Give him more diuretic. He remains in critical condition with higher chance of worsening based on today's events. I discussed and coordinated with nursing on multiple occasions throughout the night and day. Greater than 30 minutes in direct care today over the last day. MD MARLY Hart/MODL /[id number]
[2018-11-04] MEDS: ATORVASTATIN 20 MG TAB PO SCH (21:03)
[2018-11-04] MEDS: METHYLPREDNISOLONE SOD SUCC 125 MG/2ML VIAL IV SCH (21:03)
--- NOTE | 2018-11-04 22:16 | NUR ---
Haldol given for severe agitation.
[2018-11-05] VITALS (23 sets, daily range): BP systolic 138–187; BP diastolic 55–83
[2018-11-05 04:51] LABS: BASOPHILS % 0.1 % (0.0-1.0); EOSINOPHILS % 0.1 % (0.0-6.0); HEMATOCRIT 35.5 % (38.2-49.6); HEMOGLOBIN 11.1 g/dL (14.0-18.0); LYMPHOCYTES # (AUTO) 0.8 (1.0-3.2); LYMPHOCYTES % 7.4 % (18.0-39.1); MEAN CORPUSCULAR HEMOGLOBIN 29.1 pg (28-32); MEAN CORPUSCULAR HGB CONC 31.3 g/dL (31-35); MEAN CORPUSCULAR VOLUME 93.2 fL (81-99); MONOCYTES % 0.4 % (4.4-11.3); NEUTROPHILS # (AUTO) 9.3 (2.1-6.9); NEUTROPHILS % 91.5 % (38.7-80.0); PLATELET COUNT 337 x10e3/uL (140-360); RED BLOOD COUNT 3.81 x10e6/uL (4.3-5.7); RED CELL DISTRIBUTION WIDTH 14.4 % (11.7-14.4)
[2018-11-05 05:11] LABS: ALBUMIN 2.6 g/dL (3.5-5.0); ALBUMIN/GLOBULIN RATIO 0.5 (0.8-2.0); ANION GAP 13.5 mmol/L (8-16); CALCIUM 9.9 mg/dL (8.4-10.2); CREATININE, SERUM 2.16 mg/dL (0.72-1.25); MAGNESIUM 2.5 MG/DL (1.3-2.1); PHOSPHORUS 2.7 MG/DL (2.3-4.7); POTASSIUM 3.5 mmol/L (3.5-5.1)
[2018-11-05] MEDS: DOCUSATE SODIUM LIQD 100 MG/10 ML UDC NG SCH ×3 (05:59→23:33)
[2018-11-05] MEDS: PANTOPRAZOLE 40 MG 10ML VIAL IV SCH (06:00)
[2018-11-05] MEDS: HYDRALAZINE HCL 25 MG TAB PO SCH ×5 (06:00→23:33)
--- NOTE | 2018-11-05 06:00 | NUR ---
Bed linens changed. Pericare done.
--- NOTE | 2018-11-05 06:03 | Diagnostic Imaging Report ---
EXAM: ABDOMEN-1VIEW (KUB) DATE: 11/05/2018 5:00 AM INDICATION: Altered mental status. Distention COMPARISON: KUB 10/30/2018 FINDINGS: Limited radiograph for tube placement. LINES/TUBES: Nasogastric tube tip projects over the distal gastric body. BOWEL PATTERN: Enteric contrast from modified barium swallow study performed 11/01/2018 is within the colon. No abnormally air-filled distended loops of small bowel. SOFT TISSUES: Unremarkable. LUNG BASES: Please refer to same-day chest radiograph. BONES: No acute findings. IMPRESSION: Nonobstructive bowel gas pattern. Signed by: DR. Kenrick Coronado MD on 11/05/2018 6:00 AM
--- NOTE | 2018-11-05 06:05 | Diagnostic Imaging Report ---
EXAMINATION: CHEST SINGLE (PORTABLE) INDICATION: sob COMPARISON: Chest x-ray 11/03/2018 FINDINGS: AP view TUBES and LINES: Enteric tube extends below the gastroesophageal junction, out of the field of view. Left cardiac device. LUNGS: Improved right basilar airspace opacity. Central vascular congestion and mild interstitial edema. PLEURA: Right apical pneumothorax, mildly decreased with gap of 0.6 cm, previously 1 cm. HEART AND MEDIASTINUM: Stable cardiomegaly. Mediastinum midline. BONES AND SOFT TISSUES: No acute osseous lesion. Soft tissues are unremarkable. UPPER ABDOMEN: No free air under the diaphragm. IMPRESSION: Mildly decreased right pneumothorax. Improved right basilar infiltrate. Mild interstitial edema. Signed by: DR. Kenrick Coronado MD on 11/05/2018 6:02 AM
[2018-11-05] MEDS: IPRATROPIUM BROMIDE 0.02% 2.5 ML NEB NEB PRN ×3 (07:05→19:25)
--- NOTE | 2018-11-05 07:30 | NUR ---
RESTRAINT TRIAL STARTED PT EDUCATED ON LEAVING NGT IN PLACE VERBALIZED UNDERSTANDING
[2018-11-05] MEDS: CARVEDILOL 3.125 MG TAB PO SCH ×2 (08:58→17:12)
[2018-11-05] MEDS: FERROUS SULFATE 325 MG TAB PO SCH (08:58)
[2018-11-05] MEDS: CYANOCOBALAMIN 1,000 MCG TAB PO SCH (08:58)
[2018-11-05] MEDS: SENNOSIDES 8.6 MG TAB PO SCH (08:58)
[2018-11-05] MEDS: FUROSEMIDE 20 MG TAB PO SCH (08:58)
[2018-11-05] MEDS: AMLODIPINE BESYLATE 5 MG TAB NG SCH (08:58)
[2018-11-05] MEDS: BUPROPION HCL SR 150 MG TAB PO SCH ×2 (08:58→17:12)
[2018-11-05] MEDS: FINASTERIDE 5 MG TAB PO SCH (08:58)
[2018-11-05] MEDS: METHYLPREDNISOLONE SOD SUCC 125 MG/2ML VIAL IV SCH ×2 (08:58→21:01)
[2018-11-05] MEDS: FOLIC ACID 1 MG TAB PO SCH (08:58)
[2018-11-05] MEDS: POTASSIUM CHLORIDE 20MEQ/15ML UDC NG PRN (09:13)
[2018-11-05] MEDS: CEFEPIME 1GM/NS 0.9% 50 ML 50 ML IV SCH (10:41)
[2018-11-05] MEDS ORDERED: FUROSEMIDE INJ 10 MG/ML 4 ML VIAL IV ONE (10:45)
[2018-11-05] MEDS: VANCOMYCIN 750MG/NS 150ML IVPB 150 ML IV SCH (11:00)
--- NOTE | 2018-11-05 13:22 | Diagnostic Imaging Report ---
EXAMINATION: Abdominal ultrasound. CLINICAL INDICATION: Elevated liver enzymes COMPARISON: None DISCUSSION: Transverse and longitudinal images of the upper abdomen were obtained. The liver is normal in size measuring 14.4 centimeters in length in the right midclavicular line and shows normal echogenicity. No focal masses are seen in the liver. There is no intrahepatic biliary dilatation. The common bile duct measures 0.5 cm. The main portal vein is normal in caliber and 0.9 cm with normal hepatopetal flow. The gallbladder contains stones and sludge. No wall thickening. Negative Arita's. The visualized portions of the pancreatic body are unremarkable. The spleen is normal in echogenicity and size measuring 10.5 centimeters in length. The right kidney measures 10 centimeters in length and the left kidney measures 9.6 centimeters. There is normal renal cortical echogenicity and no hydronephrosis, solid mass or shadowing calculi. The visualized portions of the great vessels are normal. No free fluid is seen. IMPRESSION: Gallbladder stones and sludge Signed by: Dr. Omkar Jarvis M.D. on 11/05/2018 1:19 PM
--- NOTE | 2018-11-05 15:10 | NUR ---
Visit made by the Spiritual Care Department Pastoral Visitor, Salome Tabares. PV provided pastoral presence, hospitality, and supportive listening. Pastoral Visitor informed pt/family of the scope of [employer] [employer] and availability. BETHANY MOSS [facility] Spiritual Care Department O: [phone] Pager: [phone] ([phone] number calling from)
--- NOTE | 2018-11-05 17:57 | Progress Note ---
DATE: 11/05/2018 Pulmonary Medicine Progress Note SUBJECTIVE: The patient was seen and examined at bedside. He was given trial off restraints. NG tube is still in place for now. Tube feeds are 60 mL per hour tolerated. The patient still with rhonchi in airway. He is alert and oriented x1. REVIEW OF SYSTEMS: Cannot get reliably, as he is altered. OBJECTIVE: VITAL SIGNS: Afebrile, vital signs noted per the chart record. GENERAL: In no acute distress, alert, cooperative. He is mildly confused in bed. HEENT: Normocephalic and atraumatic. NECK: Supple. Throat midline. LUNGS: Bilateral air entry is moderate, moderate rhonchi on the left side, a few rhonchi on the right. CARDIOVASCULAR: S1 and S2. No murmurs, rubs, or gallops. ABDOMEN: Exam soft, nontender. Mild paradoxical breathing. EXTREMITIES: No clubbing. No cyanosis, there is trace edema. INTEGUMENT: No rash or purpura. LABORATORY DATA: 3.5 potassium, 2.16 creatinine. 10 white count, 35 hematocrit, 337 platelets. Vancomycin level 27. The patient with magnesium 2.5, total bilirubin 1.6, AST 506, 741 ALT. Alkaline phosphatase 726. Albumin 2.6. IMPRESSION AND PLAN: 1. Acute respiratory failure, intubated and extubated. 2. Acute liver failure, under investigation. 3. Flu pneumonia. 4. Community acquired pneumonia. 5. Acute on chronic kidney failure. Continue to mobilize him for his weakness. Continue to follow him for altered sensorium. The patient will have followup repeat liver tests and lipase checked. We will hold medicines that are liver toxic and we will adjust medicines as appropriate. Avoid hepatic and renal toxic agents. Follow up closely. MD MARLY Hart/CONTRERAS /[id number]
--- NOTE | 2018-11-05 19:00 | NUR ---
Report received. Assumed care. Assessment done. See interventions.
--- NOTE | 2018-11-05 20:22 | NUR ---
IV pulled out by pt. Restarted to [facility] with 22 ga catheter.
[2018-11-06] VITALS (19 sets, daily range): BP systolic 152–176; BP diastolic 58–83
[2018-11-06] MEDS: HALOPERIDOL LACTATE 5 MG/ML VIAL IV PRN (01:07)
--- NOTE | 2018-11-06 01:07 | NUR ---
Very agitated. Haldol given.
[2018-11-06 05:29] LABS: BASOPHILS % 0.1 % (0.0-1.0); HEMATOCRIT 35.7 % (38.2-49.6); HEMOGLOBIN 11.2 g/dL (14.0-18.0); LYMPHOCYTES # (AUTO) 1.4 (1.0-3.2); MEAN CORPUSCULAR HEMOGLOBIN 29.2 pg (28-32); MEAN CORPUSCULAR HGB CONC 31.4 g/dL (31-35); MONOCYTES # (AUTO) 0.5 (0.2-0.8); MONOCYTES % 1.7 % (4.4-11.3); PLATELET COUNT 437 x10e3/uL (140-360); RED BLOOD COUNT 3.84 x10e6/uL (4.3-5.7); RED CELL DISTRIBUTION WIDTH 14.4 % (11.7-14.4)
[2018-11-06 05:52] LABS: ALBUMIN 2.8 g/dL (3.5-5.0); ALBUMIN/GLOBULIN RATIO 0.5 (0.8-2.0); ANION GAP 15.9 mmol/L (8-16); CALCIUM 9.5 mg/dL (8.4-10.2); CREATININE, SERUM 1.99 mg/dL (0.72-1.25); MAGNESIUM 2.8 MG/DL (1.3-2.1); PHOSPHORUS 3.6 MG/DL (2.3-4.7); POTASSIUM 3.9 mmol/L (3.5-5.1)
[2018-11-06] MEDS: HYDRALAZINE HCL 25 MG TAB PO SCH ×3 (05:54→16:12)
[2018-11-06] MEDS: DOCUSATE SODIUM LIQD 100 MG/10 ML UDC NG SCH ×2 (05:54→14:00)
[2018-11-06 07:09] LABS: LYMPHOCYTES % (MANUAL) 5 % (19-48); MONOCYTES % (MANUAL) 3 % (3.4-9.0); NEUTROPHILS % (MANUAL) 92 % (40-74)
[2018-11-06 07:10] LABS: PLATELET ESTIMATE ADEQUATE; PLATELET MORPHOLOGY COMMENT NORMAL; RBC MORPHOLOGY COMMENT NORMAL
[2018-11-06] MEDS: PANTOPRAZOLE 40 MG 10ML VIAL IV SCH (08:06)
[2018-11-06] MEDS: METHYLPREDNISOLONE SOD SUCC 125 MG/2ML VIAL IV SCH (08:07)
[2018-11-06] MEDS: CARVEDILOL 3.125 MG TAB PO SCH ×2 (08:07→16:11)
[2018-11-06] MEDS: FERROUS SULFATE 325 MG TAB PO SCH (08:07)
[2018-11-06] MEDS: AMLODIPINE BESYLATE 5 MG TAB NG SCH (08:07)
[2018-11-06] MEDS: FOLIC ACID 1 MG TAB PO SCH (08:07)
[2018-11-06] MEDS: FUROSEMIDE 20 MG TAB PO SCH (08:07)
[2018-11-06] MEDS: BUPROPION HCL SR 150 MG TAB PO SCH ×2 (08:07→16:12)
[2018-11-06] MEDS: CYANOCOBALAMIN 1,000 MCG TAB PO SCH (08:07)
[2018-11-06] MEDS: SENNOSIDES 8.6 MG TAB PO SCH (08:07)
[2018-11-06] MEDS: FINASTERIDE 5 MG TAB PO SCH (08:07)
--- NOTE | 2018-11-06 08:25 | NUR ---
NOTIFIED DR GILL THAT MRCP CANCELLED DUE TO PACEMAKER. HE CAME IN TO EVALUATE AND REFERED FURTHER CARE TO Katina MCNULTY. PT TOO UNSTABLE FOR ANY PROCEDURE PER DR GILL. PT VERBALIZES UNDERSTANDING AND CONSENT TO CURRENT POC.
[2018-11-06] MEDS ORDERED: CEFEPIME 1GM/NS 0.9% 50 ML 50 ML IV SCH (09:00)
--- NOTE | 2018-11-06 10:01 | Consultation ---
DATE OF CONSULTATION: 11/06/2018 REASON FOR CONSULTATION: Gallstones and abnormal liver chemistries. HISTORY OF PRESENT ILLNESS: The patient is an 83-year-old male with a multitude of past medical problems, which include hypertension, COPD, coronary artery disease, atrial fibrillation, congestive failure, renal failure, anemia, the patient is status post pacemaker implantation, who was admitted to the hospital, required an intubation because of pneumonia. The patient is currently extubated. Following admission, the patient was found to have an elevation of the liver enzymes with bilirubin of 1.6, which now has decreased to 1.2, an AST of 506, which now is down to 167, an ALT of 741, which is now down to 499, and alkaline phosphatase of 626, down to 516. His only documented lipase was normal. Because of the above elevation, at this time I presume that Surgery was consulted in addition to the gallstones. The patient currently is awake, alert. He is in no acute distress. He appears to answer questions appropriately. He denies any history of dementia, history of GI problems other than constipation, or any history of right upper quadrant pain or fatty food intolerance. Currently, he has no abdominal pain. REVIEW OF SYSTEMS: As previously stated. PHYSICAL EXAMINATION: GENERAL: Reveals an 83-year-old male, in no acute distress. He does complain of some shortness of breath, but denies any nausea, vomiting, or abdominal pain. HEAD, EYES, EARS, NOSE, AND THROAT: Reveals no acute process. LUNGS: Reveal decreased breath sounds. Some rhonchi. ABDOMEN: Soft, absolutely nontender. There are no palpable hernias or masses. LABORATORY DATA: Liver chemistries have been already discussed. Currently, his electrolytes show a high sodium of 151 with a bicarb of 27, creatinine of 1.99, BUN of 39. GFR of 32. His ejection fraction is 28%. The patient's CBC reveals a white count of 28,000, which is up from 10,000, hematocrit of 35 with a platelet count of 437. Chest x-ray revealed resolving infiltrate and a pneumothorax which is decreased in the size on the right apex. ASSESSMENT AND PLAN: Cholelithiasis by ultrasound without any evidence of cholecystitis. There is no ductal dilatation by ultrasound also. Currently, there are no radiological or clinical findings of cholecystitis. The abnormal liver chemistries along with a white count of 28,000 are of concern for choledocholithiasis, possible ascending cholangitis. The patient could not have a cholangio MRCP because he has a pacemaker. At this point, we will defer any surgical intervention. We will consult GI for the consideration of performing an ERCP. However, this patient because of chronic atrial fibrillation is on Xarelto. He is obviously at very high surgical risk of any type and any type of surgical intervention should be limited to a life saving procedure. We will await GI input and continue to follow the patient along with you. MD SUGAR Hernández/CONTRERAS /[id number]
--- NOTE | 2018-11-06 14:56 | NUR ---
WOUND CARE- PUP SCREEN LOS : 9 DAYS AGE :[age] YEARS OLD JUAN A SCORE :15 VISCO MATTRESS/ALTERNATING PRESSURE AIR MATTRESS: PRESENT PUP: ACTIVE STRICT HOB : 30 DEGREES BILATERAL HEEL PROTECTORS: ON PATIENT VISIT/SKIN CHECK: REDNESS TO BILATERAL BUTTOCKS RESOLVING. NOTED TO RIGHT LOWER BUTTOCKS WOUND/ULCER 1X.5 WITH 100% ESCHAR. ALLEVYN DRESSING IN PLACE. RECOMMENDATIONS : CONTINUE WITH CURRENT TREATMENT PLAN Addendum: 11/06/18 at 1523 by Lio Thomas RN Amended: Links added. Addendum: 11/06/18 at 1737 by Lio Thomas RN right lower buttock - with scab, not eschar.
--- NOTE | 2018-11-06 18:01 | NUR ---
REPORT CALLED TO AMELIA MULLINS [facility]. SUP NOTIFIED.
[2018-11-06] MEDS: IPRATROPIUM BROMIDE 0.02% 2.5 ML NEB NEB PRN (19:35)
--- NOTE | 2018-11-06 20:26 | NUR ---
DR MARTINEZ ROUNDED VERBAL ORDERS RECEIVED AND READ BACK AND WAS CONFIRMED TO DECREASE IV FLUIDS TO 50ML/HR, GIVE POTASSIUM PHOS 20MM IV NOW, AM LABS OF CMP, MG, PHOS. ORDERS SUBMITTED Addendum: 11/06/18 at 2028 by Kelsie Obrien RN ERROR: PLEASE DISREGARD THE NURSING NOTE ABOVE.
--- NOTE | 2018-11-06 20:29 | NUR ---
DR MARTINEZ ROUNDED ORDERS RECEIVED TO INCREASE FREE WATER TO 250CC Q4H VIA NGT AND GIVE A NOW DOSE OF 250CC FREE WATER VIA NGT NOW
--- NOTE | 2018-11-06 22:53 | Progress Note ---
DATE: 11/06/2018 Pulmonary Medicine Progress Note SUBJECTIVE: Mr. Infante was seen and examined at bedside. Mack is in place. Urine output is present. He is, however, confused. NG tube in place. He is tolerating his tube feeds. Slow progress. REVIEW OF SYSTEMS: Cannot get reliably, as he is altered. OBJECTIVE: VITAL SIGNS: Afebrile, vital signs noted per the chart record. GENERAL: In no acute distress, although anxious, weak. HEENT: Normocephalic and atraumatic. NECK: Supple. Throat midline. LUNGS: Bilateral air entry, few rhonchi. CARDIOVASCULAR: S1 and S2. No murmurs, rubs, or gallops. ABDOMEN: Soft, nontender. EXTREMITIES: No clubbing, no cyanosis. There is trace edema to the legs. INTEGUMENT: No rashes or purpura. LABORATORY DATA: White count 28, hematocrit 35, platelets 437 . Blood gas 7.97. Sodium 151, potassium 3.9, BUN 78, creatinine 1.99. AST 167, ALT 499, alkaline phosphatase 516. Albumin is 2.8. IMPRESSION AND PLAN: 1. Acute liver failure, not otherwise specified. 2. Acute respiratory failure, extubated. 3. Encephalopathy, metabolic, plus or minus other etiologies. 4. Flu pneumonia. 5. Flu with coexisting community-acquired pneumonia possible. 6. Fluid overload. 7. Chronic kidney disease. 8. Worsening leukocytosis. Continue current treatment at this time. The patient remains in critical condition. White count is higher. GI for consideration of ascending cholangitis. Surgeon consult as well on back up, although the patient is high risk for surgery at this point. We will follow up closely. Adjust medicines for liver and kidney condition and try to avoid nephrotoxic agents especially along other medicines. Follow along closely. MD MARLY Hart/CONTRERAS /[id number]
--- NOTE | 2018-11-07 06:50 | Discharge Summary ---
HOSPITAL COURSE: An 83-year-old male, who has a past medical history positive for COPD, chronic atrial fibrillation, history of congestive heart failure, history of chronic renal insufficiency, and history of mild dementia, came to the hospital because of respiratory failure. He was found to have COPD exacerbation, bilateral pneumonia, acute on chronic systolic congestive heart failure. The patient was intubated, afterward he was extubated. He has an NG tube. He has been feeding through NG tube. Speech Therapy is working on him for swallowing. PHYSICAL EXAMINATION: VITAL SIGNS: Blood pressure 172/74, temperature , heart rate 68 per minute, respiratory rate 21 per minute, and oxygen saturation 100%. HEART: Showed irregularly irregular heart rate. Normal S1, S2 sound. LUNGS: Clear bilaterally. ABDOMEN: Soft. EXTREMITIES: Show no evidence of cyanosis or hematoma. LABORATORY DATA: On BMP, sodium 151, potassium 3.9, chloride 112, CO2 of 27, BUN 78, creatinine 1.99, glucose 162. On CBC, white blood count 28,300, hemoglobin 11.2, hematocrit 35.7, platelet count 437,000. PT 21.9, INR 1.84. AST 167, ALT 499, total bilirubin 1.2, alkaline phosphatase 516. FINAL IMPRESSION: 1. Acute respiratory failure, status post extubation. 2. Pneumothorax. 3. Acute on chronic renal failure. 4. Coronary artery disease. 5. Chronic atrial fibrillation. 6. pneumonia. 7. Small right pneumothorax. 8. Hyperkalemia. 9. Hypertension with chronic renal insufficiency and hypertensive heart disease with congestive heart failure. PLAN OF TREATMENT: Continue Atrovent q.6 hours, cefepime 1 g IV daily. Continue bupropion 150 mg twice a day, ferrous sulfate 325 mg daily, melatonin 3 mg at bedtime, hydralazine 25 mg q.6 hours, Haldol 1 mg IV q.6 hours as needed, carvedilol 6.25 mg twice a day, Proscar 5 mg daily, senna 1 tablet daily, hydralazine 10 mg IV q.4 hours as needed, Solu-Medrol 40 mg IV twice a day, vitamin B12 of 1000 mcg daily, folic acid 1 mg daily, Colace 100 mg q.8 hours, Protonix 40 mg daily, Aricept 10 mg at bedtime, furosemide 20 mg daily, potassium chloride 40 mEq as needed, and amlodipine 5 mg daily. The patient is going to be transferred to [facility] if accepted. MD EPHRAIM Oconnell/CONTRERAS /[id number]
== END 2018-11-06 21:10 | DRG 208 ==
LOC: ER 05:56 → ERHOLD 15:39 → ICU 10-28 11:33
PROVIDERS: ADMIT Internal Medicine; ATTEND Internal Medicine
PROC: 0BH17EZ Insertion of Endotracheal Airway into Trachea, Via Natural or Artificial Opening (ICD-10-PCS; principal; 2018-10-27)
PROC: 5A1945Z Respiratory Ventilation, 24-96 Consecutive Hours (ICD-10-PCS; 2018-10-27)
PROC: 0DH67UZ Insertion of Feeding Device into Stomach, Via Natural or Artificial Opening (ICD-10-PCS; 2018-10-27)
PROC: 3E0G76Z Introduction of Nutritional Substance into Upper GI, Via Natural or Artificial Opening (ICD-10-PCS; 2018-10-27)
PROC: 5A09357 Assistance with Respiratory Ventilation, Less than 24 Consecutive Hours, Continuous Positive Airway Pressure (ICD-10-PCS; 2018-10-30)
DX: J96.02 Acute respiratory failure with hypercapnia (principal); J10.00 Influenza due to other identified influenza virus with unspecified type of pneumonia; J15.9 Unspecified bacterial pneumonia; I50.23 Acute on chronic systolic (congestive) heart failure; K72.00 Acute and subacute hepatic failure without coma; G93.41 Metabolic encephalopathy; J44.0 Chronic obstructive pulmonary disease with (acute) lower respiratory infection; J44.1 Chronic obstructive pulmonary disease with (acute) exacerbation; N17.9 Acute kidney failure, unspecified; I13.0 Hypertensive heart and chronic kidney disease with heart failure and stage 1 through stage 4 chronic kidney disease, or unspecified chronic kidney disease; K83.09 Other cholangitis; E87.4 Mixed disorder of acid-base balance; L03.116 Cellulitis of left lower limb; L03.115 Cellulitis of right lower limb; I47.2 Ventricular tachycardia; I42.9 Cardiomyopathy, unspecified; E87.0 Hyperosmolality and hypernatremia; J95.811 Postprocedural pneumothorax; J90 Pleural effusion, not elsewhere classified; Z87.891 Personal history of nicotine dependence; N18.3 Chronic kidney disease, stage 3 (moderate); I48.2 Chronic atrial fibrillation; Z95.0 Presence of cardiac pacemaker; D63.8 Anemia in other chronic diseases classified elsewhere; F03.90 Unspecified dementia, unspecified severity, without behavioral disturbance, psychotic disturbance, mood disturbance, and anxiety; F32.9 Major depressive disorder, single episode, unspecified; I25.10 Atherosclerotic heart disease of native coronary artery without angina pectoris; E87.6 Hypokalemia; E03.9 Hypothyroidism, unspecified; E78.5 Hyperlipidemia, unspecified; K59.09 Other constipation; R53.81 Other malaise; K80.70 Calculus of gallbladder and bile duct without cholecystitis without obstruction; Z78.1 Physical restraint status; Z74.01 Bed confinement status; R13.10 Dysphagia, unspecified; R41.0 Disorientation, unspecified; Z79.01 Long term (current) use of anticoagulants; Z79.82 Long term (current) use of aspirin; Z88.8 Allergy status to other drugs, medicaments and biological substances; Y84.5 Insertion of gastric or duodenal sound as the cause of abnormal reaction of the patient, or of later complication, without mention of misadventure at the time of the procedure; Y92.230 Patient room in hospital as the place of occurrence of the external cause
CPT/HCPCS: 31500; 36415; 36600; 51700; 71045; 74018; 74230; 76700; 76770; 80048; 80053; 80202; 81001; 81015; 82140; 82550; 82553; 82570; 82805; 82948; 83605; 83690; 83735; 83880; 84100; 84132; 84156; 84166; 84300; 84443; 84484; 85025; 85610; 87040; 87070; 87086; 87205; 87400; 93005; 93306; 94002; 94003; 94640; 94660; 97139; 99284; J0330; J0360; J0692; J1630; J1940; J2250; J2930; J3370; J3480; J7050